=== PATIENT | female | born 1950 | race Caucasian/White ===

== ENCOUNTER → 2020-09-29 | Outpatient (CLI) | payer OTHER ==
[~2020-09-29] MED LIST: ATEN50 PO; HYDCHL25 PO; Pepcid40 MG PO
== END | disposition home or self-care (01) ==
LOC: LAB EV 14:45 → LAB SHORT 14:45
DX: S39.012A Strain of muscle, fascia and tendon of lower back, initial encounter (principal); N39.0 Urinary tract infection, site not specified
CPT/HCPCS: 87077; 87086; 87186

== ENCOUNTER 2021-01-18 08:42 | Emergency (ER) | payer OTHER ==
[~2021-01-18] VITALS: Ht 157.5 cm; Wt 74.8 kg
[2021-01-18] MEDS ORDERED: ASPI81CH PO (08:58)
[2021-01-18 09:36] LABS: Source, Urine Catheter
[2021-01-18 09:46] LABS: Appearance, Urine Clear (Clear); Bilirubin, Urine Neg (Neg); Blood, Urine Neg (Neg); Color, Urine Yellow (P-Yellow); Glucose Qualitative, Urine Neg (Neg); Ketones, Urine 1+ (Neg); Leukocyte Esterase, Urine 1+ (Neg); Nitrite, Urine Pos (Neg); Protein, Urine Neg (Neg); Urobilinogen, Urine NORM (Normal); pH, Urine 6.5 (5.0-8.0)
[2021-01-18 09:55] LABS: Bacteria Many /hpf; Red Blood Cells, Urine 0-2 /hpf (0-2); Squamous Epithelial Cells Rare /hpf (Few); Transitional Epithelial Cells Rare /hpf (0-Rare)
[2021-01-18] MEDS ORDERED: Percocet 5-3251 EACH PO ×2 (10:13→11:13)
[2021-01-18] MEDS ORDERED: Miralax17 GM PO ×2 (10:13→11:13)
[2021-01-18] MEDS ORDERED: CEFD300 PO (10:13)
[2021-01-18] MEDS ORDERED: ONDA4ODT SL ×2 (10:13→11:13)
== END 2021-01-19 15:30 | disposition home or self-care (01) ==
LOC: ER 08:42
PROVIDERS: Emergency Medicine
DX: M54.5 Low back pain (principal); G89.29 Other chronic pain; I10 Essential (primary) hypertension; Z88.8 Allergy status to other drugs, medicaments and biological substances; Z88.5 Allergy status to narcotic agent; Z79.899 Other long term (current) drug therapy
CPT/HCPCS: 51701; 81001; 87077; 87086; 87186; 96374; 96375; 99283-25; A9270; J1170; J2405

== ENCOUNTER 2021-01-19 09:00 | Emergency (ER) | payer OTHER ==
[~2021-01-19] VITALS: Ht 157.5 cm; Wt 74.8 kg
[~2021-01-19 09:00] MED LIST changes: +ASPI81CH PO; +CEFD300 PO; +Miralax17 GM PO; +ONDA4ODT SL; +Percocet 5-3251 EACH PO
[2021-01-19 09:48] LABS: Source, Urine Catheter
[2021-01-19 09:51] LABS: Bilirubin, Urine Neg (Neg); Blood, Urine Neg (Neg); Glucose Qualitative, Urine Neg (Neg); Ketones, Urine 2+ (Neg); Leukocyte Esterase, Urine 1+ (Neg); Nitrite, Urine Neg (Neg); Protein, Urine Neg (Neg); Urobilinogen, Urine NORM (Normal); pH, Urine 6.5 (5.0-8.0)
[2021-01-19 09:55] LABS: BASOPHILS ABSOLUTE AUTO 0.02 K/mm3 (0.00-0.23); BASOPHILS PERCENT AUTO 0 % (0-2); EOSINOPHILS ABSOLUTE AUTO 0.02 K/mm3 (0.00-0.68); EOSINOPHILS PERCENT AUTO 0 % (0-6); Hematocrit 31.3 % (33.0-51.0); Hemoglobin 10.4 g/dL (11.5-16.0); IMMATURE GRAN ABSOLUTE AUTO 0.03 K/mm3 (0.00-0.10); IMMATURE GRAN PERCENT AUTO 0 % (0-1); LYMPHOCYTES PERCENT AUTO 9 % (21-46); MONOCYTES PERCENT AUTO 5 % (4-13); Mean Corpuscular HGB 29.5 pg (26.0-34.0); Mean Corpuscular HGB Conc 33.2 g/dL (31.5-36.5); Mean Corpuscular Volume 89 fL (80-100); Mean Platelet Volume 9.9 fL (9.1-12.4); NEUTROPHILS ABSOLUTE AUTO 8.08 K/mm3 (1.96-9.15); NEUTROPHILS PERCENT AUTO 85 % (41-73); Platelet Count 367 K/mm3 (150-400); RDW Coefficient Variation 13.1 % (11.7-14.2); RDW Standard Deviation 42.3 fL (35.1-46.3); Red Blood Cell Count 3.53 M/mm3 (3.80-5.20); White Blood Cell Count 9.55 K/mm3 (4.00-11.30)
[2021-01-19 09:57] LABS: Appearance, Urine Clear (Clear); Color, Urine Yellow (P-Yellow)
[2021-01-19 09:59] LABS: Bacteria Rare /hpf; Red Blood Cells, Urine 0-2 /hpf (0-2); Squamous Epithelial Cells Few /hpf (Few); White Blood Cells, Urine 0-2 /hpf (0-5)
[2021-01-19 10:08] LABS: Albumin, Blood 3.4 g/dL (3.4-5.0); Albumin/Globulin Ratio 0.8 (0.8-1.8); Bilirubin, Total 0.4 mg/dL (0.1-1.0); Bun/Creatinine Ratio 19.3 (12.0-20.0); Calcium, Blood 9.9 mg/dL (8.5-10.1); Creatinine, Blood 1.35 mg/dL (0.40-1.00); Globulin, Blood 4.5 g/dL (2.2-4.0); Potassium, Blood 3.6 mmol/L (3.5-5.5); Total Protein, Blood 7.9 g/dL (6.4-8.2)
[2021-01-19 15:04] LABS: Influenza A, PCR NEGATIVE (NEGATIVE); Influenza B, PCR NEGATIVE (NEGATIVE); Resp Syncytial Virus, PCR NEGATIVE (NEGATIVE); SARS-Cov-2 (COVID-19) PCR, MMC NEGATIVE (NEGATIVE)
== END 2021-01-19 15:30 | disposition home or self-care (01) ==
LOC: ER 09:00
PROVIDERS: Physician Assistant
DX: C79.02 Secondary malignant neoplasm of left kidney and renal pelvis (principal); I10 Essential (primary) hypertension; Z88.5 Allergy status to narcotic agent; Z88.8 Allergy status to other drugs, medicaments and biological substances; Z79.82 Long term (current) use of aspirin; Z20.822 Contact with and (suspected) exposure to COVID-19
CPT/HCPCS: 0241U; 74178; 80053; 81001; 83690; 85025; 87086; 96361-59; 96374-59; 96376-59; 99285-25; J1170; J7030; P9612; Q9967

== ENCOUNTER → 2021-03-24 | Outpatient (CLI) | payer OTHER ==
[2021-03-24 11:43] LABS: BASOPHILS ABSOLUTE AUTO 0.05 K/mm3 (0.00-0.23); BASOPHILS PERCENT AUTO 1 % (0-2); EOSINOPHILS ABSOLUTE AUTO 0.09 K/mm3 (0.00-0.68); EOSINOPHILS PERCENT AUTO 1 % (0-6); Hematocrit 34.9 % (33.0-51.0); Hemoglobin 11.4 g/dL (11.5-16.0); IMMATURE GRAN ABSOLUTE AUTO 0.03 K/mm3 (0.00-0.10); IMMATURE GRAN PERCENT AUTO 0 % (0-1); LYMPHOCYTES ABSOLUTE AUTO 0.77 K/mm3 (0.84-5.20); LYMPHOCYTES PERCENT AUTO 10 % (21-46); MONOCYTES ABSOLUTE AUTO 0.62 K/mm3 (0.16-1.47); MONOCYTES PERCENT AUTO 8 % (4-13); Mean Corpuscular HGB 29.7 pg (26.0-34.0); Mean Corpuscular HGB Conc 32.7 g/dL (31.5-36.5); Mean Corpuscular Volume 91 fL (80-100); NEUTROPHILS ABSOLUTE AUTO 6.02 K/mm3 (1.96-9.15); NEUTROPHILS PERCENT AUTO 79 % (41-73); Platelet Count 481 K/mm3 (150-400); RDW Coefficient Variation 16.6 % (11.7-14.2); RDW Standard Deviation 53.4 fL (35.1-46.3); Red Blood Cell Count 3.84 M/mm3 (3.80-5.20); White Blood Cell Count 7.58 K/mm3 (4.00-11.30)
[2021-03-24 11:54] LABS: Albumin, Blood 3.1 g/dL (3.4-5.0); Albumin/Globulin Ratio 0.7 (0.8-1.8); Bilirubin, Total 0.4 mg/dL (0.1-1.0); Bun/Creatinine Ratio 18.4 (12.0-20.0); Calcium, Blood 9.4 mg/dL (8.5-10.1); Creatinine, Blood 0.98 mg/dL (0.40-1.00); Globulin, Blood 4.5 g/dL (2.2-4.0); Potassium, Blood 4.1 mmol/L (3.5-5.5); Total Protein, Blood 7.6 g/dL (6.4-8.2)
== END ==
LOC: LAB SHORT 11:36 → LAB 11:36
PROVIDERS: General Practice
DX: C64.9 Malignant neoplasm of unspecified kidney, except renal pelvis (principal); T81.30XA Disruption of wound, unspecified, initial encounter
CPT/HCPCS: 80053; 85025; 87070; 87075; 87205

== ENCOUNTER 2021-04-23 04:14 | Day surgery (SDC) | payer OTHER | END 2021-04-23 22:53 | disposition home or self-care (01) | LOC: WOUND 04:14 | DX: T81.30XA Disruption of wound, unspecified, initial encounter (principal); S21.209A Unspecified open wound of unspecified back wall of thorax without penetration into thoracic cavity, initial encounter; X58.XXXA Exposure to other specified factors, initial encounter | CPT/HCPCS: G0463 ==

== ENCOUNTER 2021-04-30 00:54 | Day surgery (SDC) | payer OTHER | END 2021-04-30 23:28 | disposition home or self-care (01) | LOC: WOUND 00:54 | DX: T81.31XA Disruption of external operation (surgical) wound, not elsewhere classified, initial encounter (principal); S21.209A Unspecified open wound of unspecified back wall of thorax without penetration into thoracic cavity, initial encounter; X58.XXXA Exposure to other specified factors, initial encounter | CPT/HCPCS: A9270; G0463 ==

== ENCOUNTER 2021-05-07 04:08 | Day surgery (SDC) | payer OTHER | END 2021-05-07 23:59 | disposition home or self-care (01) | LOC: WOUND 04:08 | DX: S21.209A Unspecified open wound of unspecified back wall of thorax without penetration into thoracic cavity, initial encounter (principal); X58.XXXA Exposure to other specified factors, initial encounter | CPT/HCPCS: G0463 ==

== ENCOUNTER 2021-05-14 06:30 | Day surgery (SDC) | payer OTHER | END 2021-05-14 22:51 | disposition home or self-care (01) | LOC: WOUND 06:30 | DX: S21.209D Unspecified open wound of unspecified back wall of thorax without penetration into thoracic cavity, subsequent encounter (principal); X58.XXXD Exposure to other specified factors, subsequent encounter | CPT/HCPCS: G0463 ==

== ENCOUNTER 2021-05-23 02:10 | Day surgery (SDC) | payer OTHER | END 2021-05-23 23:00 | disposition home or self-care (01) | LOC: WOUND 02:10 | DX: S21.209D Unspecified open wound of unspecified back wall of thorax without penetration into thoracic cavity, subsequent encounter (principal); X58.XXXD Exposure to other specified factors, subsequent encounter | CPT/HCPCS: A9270; G0463 ==

== ENCOUNTER 2021-05-28 02:35 | Day surgery (SDC) | payer OTHER | END 2021-05-28 23:31 | disposition home or self-care (01) | LOC: WOUND 02:35 | DX: S21.209D Unspecified open wound of unspecified back wall of thorax without penetration into thoracic cavity, subsequent encounter (principal); X58.XXXD Exposure to other specified factors, subsequent encounter; C64.9 Malignant neoplasm of unspecified kidney, except renal pelvis | CPT/HCPCS: G0463 ==

== ENCOUNTER 2021-06-04 02:03 | Day surgery (SDC) | payer OTHER | END 2021-06-04 23:00 | disposition home or self-care (01) | LOC: WOUND 02:03 | DX: T81.31XA Disruption of external operation (surgical) wound, not elsewhere classified, initial encounter (principal); S21.209D Unspecified open wound of unspecified back wall of thorax without penetration into thoracic cavity, subsequent encounter; X58.XXXD Exposure to other specified factors, subsequent encounter; C64.9 Malignant neoplasm of unspecified kidney, except renal pelvis | CPT/HCPCS: G0463 ==

== ENCOUNTER 2021-06-11 00:38 | Day surgery (SDC) | payer OTHER | END 2021-06-11 22:46 | disposition home or self-care (01) | LOC: WOUND 00:38 | DX: T81.31XD Disruption of external operation (surgical) wound, not elsewhere classified, subsequent encounter (principal); C64.9 Malignant neoplasm of unspecified kidney, except renal pelvis; C79.9 Secondary malignant neoplasm of unspecified site; Z92.3 Personal history of irradiation | CPT/HCPCS: G0463 ==

== ENCOUNTER 2021-06-18 01:56 | Day surgery (SDC) | payer OTHER | END 2021-06-18 23:05 | disposition home or self-care (01) | LOC: WOUND 01:56 | DX: T81.31XA Disruption of external operation (surgical) wound, not elsewhere classified, initial encounter (principal); C64.9 Malignant neoplasm of unspecified kidney, except renal pelvis; Y83.8 Other surgical procedures as the cause of abnormal reaction of the patient, or of later complication, without mention of misadventure at the time of the procedure; Z88.5 Allergy status to narcotic agent; Z88.8 Allergy status to other drugs, medicaments and biological substances | CPT/HCPCS: A9270 ==

== ENCOUNTER 2021-06-25 02:49 | Day surgery (SDC) | payer OTHER | END 2021-06-25 22:59 | disposition home or self-care (01) | LOC: WOUND 02:49 | DX: T81.31XD Disruption of external operation (surgical) wound, not elsewhere classified, subsequent encounter (principal); Z85.528 Personal history of other malignant neoplasm of kidney; Z92.3 Personal history of irradiation | CPT/HCPCS: A9270 ==

== ENCOUNTER 2021-07-02 02:17 | Day surgery (SDC) | payer OTHER | END 2021-07-02 22:44 | disposition home or self-care (01) | LOC: WOUND 02:17 | DX: T81.31XA Disruption of external operation (surgical) wound, not elsewhere classified, initial encounter (principal); C64.9 Malignant neoplasm of unspecified kidney, except renal pelvis; Y83.8 Other surgical procedures as the cause of abnormal reaction of the patient, or of later complication, without mention of misadventure at the time of the procedure; Z92.3 Personal history of irradiation | CPT/HCPCS: G0463 ==

== ENCOUNTER 2021-07-16 02:48 | Day surgery (SDC) | payer OTHER ==
[~2021-07-16 02:48] MED LIST changes: -ASPI81CH PO; +Aspir 8181 MG PO
== END 2021-07-16 22:43 | disposition home or self-care (01) ==
LOC: WOUND 02:48
DX: T81.31XA Disruption of external operation (surgical) wound, not elsewhere classified, initial encounter (principal); S21.209A Unspecified open wound of unspecified back wall of thorax without penetration into thoracic cavity, initial encounter; X58.XXXA Exposure to other specified factors, initial encounter
CPT/HCPCS: G0463

== ENCOUNTER 2021-07-18 12:07 | Inpatient (IN) | payer OTHER ==
[~2021-07-18] VITALS: Ht 157.5 cm; Wt 66.8 kg
[~2021-07-18 12:07] MED LIST changes: -GABA400 PO; -HYDPAM50 PO; -HYDR1TAB94 PO; -HYDRA50 PO; -INLYTA1 MG PO; -KEYTRUDA100 MG/41 IV; -MAGNESIUM OXID400 M1 PO; -MELO7.5 PO; -MIRALAX17 GM PO; -NEURONTIN PO; -OMEP20ER PO; -ONDA4ODT MM; -PANT40 PO; -SALONPAS PATCH1 EACH; -SUCRALFATE PO; -TIZA4 PO
[2021-07-18] MEDS ORDERED: GABA400 PO (12:37)
[2021-07-18] MEDS ORDERED: CEFD300 PO (12:37)
[2021-07-18] MEDS ORDERED: HYDRA50 PO (12:38)
[2021-07-18] MEDS ORDERED: HYDR1TAB94 PO (12:39)
[2021-07-18] MEDS ORDERED: INLYTA1 MG PO (12:40)
[2021-07-18] MEDS ORDERED: HYDPAM50 PO (12:40)
[2021-07-18] MEDS ORDERED: KEYTRUDA100 MG/41 IV (12:41)
[2021-07-18] MEDS ORDERED: MELO7.5 PO (12:41)
[2021-07-18] MEDS ORDERED: MAGNESIUM OXID400 M1 PO (12:41)
[2021-07-18] MEDS ORDERED: OMEP20ER PO (12:42)
[2021-07-18] MEDS ORDERED: MIRALAX17 GM PO (12:42)
[2021-07-18] MEDS ORDERED: PANT40 PO (12:42)
[2021-07-18] MEDS ORDERED: TIZA4 PO (12:43)
[2021-07-18] MEDS ORDERED: SALONPAS PATCH1 EACH (12:43)
[2021-07-18 12:47] LABS: BASOPHILS ABSOLUTE AUTO 0.06 K/mm3 (0.00-0.23); BASOPHILS PERCENT AUTO 1 % (0-2); EOSINOPHILS ABSOLUTE AUTO 0.12 K/mm3 (0.00-0.68); EOSINOPHILS PERCENT AUTO 2 % (0-6); Hematocrit 29.5 % (33.0-51.0); Hemoglobin 9.6 g/dL (11.5-16.0); IMMATURE GRAN ABSOLUTE AUTO 0.02 K/mm3 (0.00-0.10); IMMATURE GRAN PERCENT AUTO 0 % (0-1); LYMPHOCYTES ABSOLUTE AUTO 0.82 K/mm3 (0.84-5.20); LYMPHOCYTES PERCENT AUTO 13 % (21-46); MONOCYTES ABSOLUTE AUTO 0.72 K/mm3 (0.16-1.47); MONOCYTES PERCENT AUTO 11 % (4-13); Mean Corpuscular HGB 28.9 pg (26.0-34.0); Mean Corpuscular HGB Conc 32.5 g/dL (31.5-36.5); Mean Corpuscular Volume 89 fL (80-100); Mean Platelet Volume 9.7 fL (9.1-12.4); NEUTROPHILS ABSOLUTE AUTO 4.76 K/mm3 (1.96-9.15); NEUTROPHILS PERCENT AUTO 73 % (41-73); Platelet Count 420 K/mm3 (150-400); RDW Coefficient Variation 14.2 % (11.7-14.2); RDW Standard Deviation 45.9 fL (35.1-46.3); Red Blood Cell Count 3.32 M/mm3 (3.80-5.20)
[2021-07-18 12:53] LABS: Bun/Creatinine Ratio 25.7 (12.0-20.0); Calcium, Blood 9.6 mg/dL (8.5-10.1); Creatinine, Blood 1.09 mg/dL (0.40-1.00); Potassium, Blood 4.3 mmol/L (3.5-5.5)
[2021-07-18 13:10] LABS: International Normalized Ratio 1.03; Prothrombin Time Results 10.8 Sec (9.7-11.5)
[2021-07-18 16:44] LABS: BASOPHILS ABSOLUTE AUTO 0.04 K/mm3 (0.00-0.23); BASOPHILS PERCENT AUTO 1 % (0-2); EOSINOPHILS ABSOLUTE AUTO 0.13 K/mm3 (0.00-0.68); EOSINOPHILS PERCENT AUTO 2 % (0-6); Hematocrit 27.7 % (33.0-51.0); Hemoglobin 8.9 g/dL (11.5-16.0); IMMATURE GRAN ABSOLUTE AUTO 0.02 K/mm3 (0.00-0.10); IMMATURE GRAN PERCENT AUTO 0 % (0-1); LYMPHOCYTES ABSOLUTE AUTO 0.89 K/mm3 (0.84-5.20); LYMPHOCYTES PERCENT AUTO 15 % (21-46); MONOCYTES ABSOLUTE AUTO 0.75 K/mm3 (0.16-1.47); MONOCYTES PERCENT AUTO 13 % (4-13); Mean Corpuscular HGB 28.6 pg (26.0-34.0); Mean Corpuscular HGB Conc 32.1 g/dL (31.5-36.5); Mean Corpuscular Volume 89 fL (80-100); Mean Platelet Volume 9.5 fL (9.1-12.4); NEUTROPHILS ABSOLUTE AUTO 4.04 K/mm3 (1.96-9.15); NEUTROPHILS PERCENT AUTO 69 % (41-73); Platelet Count 379 K/mm3 (150-400); RDW Coefficient Variation 14.2 % (11.7-14.2); RDW Standard Deviation 45.7 fL (35.1-46.3); Red Blood Cell Count 3.11 M/mm3 (3.80-5.20); White Blood Cell Count 5.87 K/mm3 (4.00-11.30)
[2021-07-18 16:54] LABS: Source, Urine Clean Catch
[2021-07-18 17:40] LABS: Appearance, Urine Turbid (Clear); Bilirubin, Urine Neg (Neg); Blood, Urine 4+ (Neg); Color, Urine Red (P-Yellow); Glucose Qualitative, Urine Neg (Neg); Ketones, Urine Neg (Neg); Leukocyte Esterase, Urine Neg (Neg); Nitrite, Urine Neg (Neg); Protein, Urine 4+ (Neg); Specific Gravity, Urine 1.015 (1.003-1.022); Urobilinogen, Urine NORM (Normal); pH, Urine 6.5 (5.0-8.0)
[2021-07-18] MEDS ORDERED: NEURONTIN PO (17:57)
[2021-07-18] MEDS ORDERED: ATEN50 PO (17:57)
[2021-07-18] MEDS ORDERED: SUCRALFATE PO (18:08)
[2021-07-18] MEDS ORDERED: HYDCHL25 PO (18:10)
[2021-07-18 18:14] LABS: Bacteria Mod /hpf; Red Blood Cells, Urine TNTC /hpf (0-2); Squamous Epithelial Cells Few /hpf (Few)
[2021-07-19 04:55] LABS: BASOPHILS ABSOLUTE AUTO 0.05 K/mm3 (0.00-0.23); BASOPHILS PERCENT AUTO 1 % (0-2); EOSINOPHILS ABSOLUTE AUTO 0.09 K/mm3 (0.00-0.68); EOSINOPHILS PERCENT AUTO 1 % (0-6); Hemoglobin 11.2 g/dL (11.5-16.0); IMMATURE GRAN ABSOLUTE AUTO 0.03 K/mm3 (0.00-0.10); IMMATURE GRAN PERCENT AUTO 0 % (0-1); LYMPHOCYTES ABSOLUTE AUTO 0.83 K/mm3 (0.84-5.20); LYMPHOCYTES PERCENT AUTO 11 % (21-46); MONOCYTES ABSOLUTE AUTO 0.82 K/mm3 (0.16-1.47); MONOCYTES PERCENT AUTO 11 % (4-13); Mean Corpuscular HGB 28.8 pg (26.0-34.0); Mean Corpuscular HGB Conc 32.9 g/dL (31.5-36.5); Mean Corpuscular Volume 87 fL (80-100); Mean Platelet Volume 9.4 fL (9.1-12.4); NEUTROPHILS ABSOLUTE AUTO 5.71 K/mm3 (1.96-9.15); NEUTROPHILS PERCENT AUTO 76 % (41-73); Platelet Count 393 K/mm3 (150-400); RDW Coefficient Variation 14.9 % (11.7-14.2); Red Blood Cell Count 3.89 M/mm3 (3.80-5.20); White Blood Cell Count 7.53 K/mm3 (4.00-11.30)
[2021-07-19 05:31] LABS: Albumin, Blood 2.9 g/dL (3.4-5.0); Albumin/Globulin Ratio 0.7 (0.8-1.8); Bilirubin, Total 0.4 mg/dL (0.1-1.0); Bun/Creatinine Ratio 21.7 (12.0-20.0); Calcium, Blood 9.4 mg/dL (8.5-10.1); Creatinine, Blood 1.2 mg/dL (0.40-1.00); Potassium, Blood 3.9 mmol/L (3.5-5.5); Total Protein, Blood 6.9 g/dL (6.4-8.2)
--- NOTE | 2021-07-19 06:09 | NUR ---
Newly admitted to unit with CBI and bearden catheter. urine shows hematuria but is clearing up to a lime boiler red color. a couple of clots noted overnight. CBI is running at a slower speed due to patient not tolerating a faster rate and catheter leakage when CBI is clamp is opened. otherwise, patient is alert and oriented x4. bedrest. vitals stable. on RA.
--- NOTE | 2021-07-19 08:59 | NUR ---
NAUSEA Patient c/o nausea and having emesis. Dr. Avalos notified, awaiting orders.
--- NOTE | 2021-07-19 15:51 | NUR ---
CLARIFICATION RE H&H Called Dr. Marinelli RE clarification for H&H q6H and the comment made with the serial H&H order. Per Dr. Marinelli, d/c serial H&H, order CBC for AM labs on 07/20, and order H&H for now 07/19 @ 1600. Orders updated.
[2021-07-19 16:49] LABS: Hematocrit 32.3 % (33.0-51.0); Hemoglobin 10.4 g/dL (11.5-16.0)
--- NOTE | 2021-07-19 19:19 | NUR ---
Shift Summary, The patient was a/ox4 TO PERSON, PLACE, TIME AND EVENT, She was pleasent and cooperative with care. she was a 1 prsn assist to the bsc. She denied SOB OR CHEST PAIN AND WAS RA. She had a bearden with CBI throughout the shift. The drainage was light red and the patient denied abd or bladder pain. The patient did have flank pain and was being medicated per EMAR and she stated that it helped. She had some nausea this am but was given zofran per emar and the nausea subsided. The patient was ambulated in the hallway and up in her chair for dinner. The patient is currently in her room talking on the phone.
[2021-07-20 05:28] LABS: BASOPHILS ABSOLUTE AUTO 0.06 K/mm3 (0.00-0.23); BASOPHILS PERCENT AUTO 1 % (0-2); EOSINOPHILS ABSOLUTE AUTO 0.31 K/mm3 (0.00-0.68); EOSINOPHILS PERCENT AUTO 5 % (0-6); Hemoglobin 10.5 g/dL (11.5-16.0); IMMATURE GRAN ABSOLUTE AUTO 0.01 K/mm3 (0.00-0.10); IMMATURE GRAN PERCENT AUTO 0 % (0-1); LYMPHOCYTES ABSOLUTE AUTO 0.92 K/mm3 (0.84-5.20); LYMPHOCYTES PERCENT AUTO 15 % (21-46); MONOCYTES ABSOLUTE AUTO 0.84 K/mm3 (0.16-1.47); MONOCYTES PERCENT AUTO 14 % (4-13); Mean Corpuscular HGB 28.2 pg (26.0-34.0); Mean Corpuscular HGB Conc 31.8 g/dL (31.5-36.5); Mean Corpuscular Volume 89 fL (80-100); Mean Platelet Volume 9.4 fL (9.1-12.4); NEUTROPHILS ABSOLUTE AUTO 3.82 K/mm3 (1.96-9.15); NEUTROPHILS PERCENT AUTO 64 % (41-73); Platelet Count 388 K/mm3 (150-400); RDW Coefficient Variation 14.6 % (11.7-14.2); RDW Standard Deviation 47.3 fL (35.1-46.3); Red Blood Cell Count 3.73 M/mm3 (3.80-5.20); White Blood Cell Count 5.96 K/mm3 (4.00-11.30)
--- NOTE | 2021-07-20 14:31 | NUR ---
DR CHATMAN CANCELED PER DR. LEROY'S REQUEST.
[2021-07-20 16:54] LABS: Hematocrit 31.7 % (33.0-51.0); Hemoglobin 10.4 g/dL (11.5-16.0)
--- NOTE | 2021-07-20 17:39 | NUR ---
SHIFT SUMMARY PATIENT ALERT AND ORIENTED, COOPERATIVE WITH CARE. BLADDER IRRIGATION WAS COMPLETED THIS SHIFT. THE IRVIN WAS DC'D PER DR'S ORDERS. NO NOTICABLE CLOTS AT THIS TIME, HGB MONITORED. PATIENT HAS BEEN RECEIVING NORCO FOR PAIN NEEDED PER THE EMAR. VITAL SIGNS STABLE. WILL CONTINUE TO MONITOR THE PATIENT UNTIL REPORT IS GIVEN TO ONCOMING SHIFT NURSE.
--- NOTE | 2021-07-21 04:27 | NUR ---
PATIENT VOIDED POST IRVIN CATHETER D/C. FIRST VOID AT 2100 WAS DARK RED, BLOODY WITH 2 SMALL CLOTS. THE SECOND VOID AT 0320 WAS DANYELLE COLORED URINE WITH JUST A SMALL AMOUNT OF BLOOD PRESENT. NO CLOTS WERE VISUALIZED. A NEW IV WAS PLACED. THE OTHER ONE INFILTRATED. NO OTHER ACUTE CHANGES NOTED.
[2021-07-21 05:11] LABS: Hematocrit 31.9 % (33.0-51.0); Hemoglobin 10.2 g/dL (11.5-16.0)
[2021-07-21 05:52] LABS: Albumin, Blood 2.8 g/dL (3.4-5.0); Albumin/Globulin Ratio 0.7 (0.8-1.8); Bilirubin, Direct 0.1 mg/dL (0.0-0.3); Bilirubin, Indirect 0.2 mg/dL (0.1-0.7); Bilirubin, Total 0.3 mg/dL (0.1-1.0); Bun/Creatinine Ratio 18.8 (12.0-20.0); Calcium, Blood 9.3 mg/dL (8.5-10.1); Creatinine, Blood 1.12 mg/dL (0.40-1.00); Magnesium, Blood 2.4 mg/dL (1.6-2.4); Phosphorus, Blood 3.1 mg/dL (2.5-4.9); Potassium, Blood 3.6 mmol/L (3.5-5.5); Total Protein, Blood 6.8 g/dL (6.4-8.2)
[2021-07-21] MEDS ORDERED: ONDA4ODT MM (13:30)
--- NOTE | 2021-07-21 16:59 | NUR ---
PATIENT WAS DISCHARGED VIA WHEEL CHAIR TO FAMILY. PATIENT VERBALLY STATED THEY UNDERSTOOD DISCHARGE INSTRUCTIONS AND FOLLOW UP CARE. PATIENT'S BELONGINGS AND MEDICATIONS WERE WITH THE PATIENT AT DISCHARGE.
== END 2021-07-21 15:43 | disposition home or self-care (01) | DRG 687 ==
LOC: ER 12:07 → ICUW 18:05 → MEDS 18:05
PROVIDERS: Family Medicine; Internal Medicine Nephrology; Student in an Organized Health Care Education/Training Program; ADMIT Hospitalist
PROC: 30233N1 Transfusion of Nonautologous Red Blood Cells into Peripheral Vein, Percutaneous Approach (ICD-10-PCS; principal; 2021-07-18)
DX: C64.2 Malignant neoplasm of left kidney, except renal pelvis (principal); I82.3 Embolism and thrombosis of renal vein; C79.51 Secondary malignant neoplasm of bone; D62 Acute posthemorrhagic anemia; N17.9 Acute kidney failure, unspecified; I82.890 Acute embolism and thrombosis of other specified veins; G89.29 Other chronic pain; K59.00 Constipation, unspecified; K21.9 Gastro-esophageal reflux disease without esophagitis; M10.9 Gout, unspecified; I10 Essential (primary) hypertension; G62.9 Polyneuropathy, unspecified; R31.0 Gross hematuria; Z88.5 Allergy status to narcotic agent; Z88.8 Allergy status to other drugs, medicaments and biological substances; Z90.710 Acquired absence of both cervix and uterus; Z87.891 Personal history of nicotine dependence; Z79.899 Other long term (current) drug therapy; Z79.82 Long term (current) use of aspirin; N18.9 Chronic kidney disease, unspecified; E88.09 Other disorders of plasma-protein metabolism, not elsewhere classified
CPT/HCPCS: 36415; 36430; 51700; 51702; 51798; 74177; 76770; 80048; 80053; 81001; 82248; 83615; 83735; 84100; 85014; 85018; 85025; 85610; 85730; 86850; 86900; 86901; 86923; 87077; 87086; 87186; 93005; 93010; 93306; 93975; 96374-59; 97162; 97165; 97530; 99285-25; A9270; J1170; J2405; J7030; P9016; Q9967

== ENCOUNTER → 2021-07-18 | Outpatient (CLI) | payer OTHER ==
[~2021-07-18] MED LIST changes: +GABA400 PO; +HYDPAM50 PO; +HYDR1TAB94 PO; +HYDRA50 PO; +INLYTA1 MG PO; +KEYTRUDA100 MG/41 IV; +MAGNESIUM OXID400 M1 PO; +MELO7.5 PO; +MIRALAX17 GM PO; +NEURONTIN PO; +OMEP20ER PO; +ONDA4ODT MM; +PANT40 PO; +SALONPAS PATCH1 EACH; +SUCRALFATE PO; +TIZA4 PO
[2021-07-18 11:55] LABS: BASOPHILS ABSOLUTE AUTO 0.08 K/mm3 (0.00-0.23); BASOPHILS PERCENT AUTO 1 % (0-2); EOSINOPHILS ABSOLUTE AUTO 0.15 K/mm3 (0.00-0.68); EOSINOPHILS PERCENT AUTO 2 % (0-6); Hematocrit 31.7 % (33.0-51.0); Hemoglobin 10.3 g/dL (11.5-16.0); IMMATURE GRAN ABSOLUTE AUTO 0.05 K/mm3 (0.00-0.10); IMMATURE GRAN PERCENT AUTO 1 % (0-1); LYMPHOCYTES ABSOLUTE AUTO 0.77 K/mm3 (0.84-5.20); LYMPHOCYTES PERCENT AUTO 12 % (21-46); MONOCYTES ABSOLUTE AUTO 0.58 K/mm3 (0.16-1.47); MONOCYTES PERCENT AUTO 9 % (4-13); Mean Corpuscular HGB Conc 32.5 g/dL (31.5-36.5); Mean Corpuscular Volume 89 fL (80-100); Mean Platelet Volume 9.3 fL (9.1-12.4); NEUTROPHILS ABSOLUTE AUTO 4.72 K/mm3 (1.96-9.15); NEUTROPHILS PERCENT AUTO 74 % (41-73); Platelet Count 417 K/mm3 (150-400); RDW Coefficient Variation 14.3 % (11.7-14.2); RDW Standard Deviation 46.5 fL (35.1-46.3); Red Blood Cell Count 3.55 M/mm3 (3.80-5.20); White Blood Cell Count 6.35 K/mm3 (4.00-11.30)
[2021-07-18 12:05] LABS: Albumin, Blood 3.6 g/dL (3.4-5.0); Albumin/Globulin Ratio 0.8 (0.8-1.8); Bilirubin, Total 0.3 mg/dL (0.1-1.0); Bun/Creatinine Ratio 23.8 (12.0-20.0); Calcium, Blood 9.8 mg/dL (8.5-10.1); Creatinine, Blood 1.3 mg/dL (0.40-1.00); Globulin, Blood 4.3 g/dL (2.2-4.0); Total Protein, Blood 7.9 g/dL (6.4-8.2)
== END ==
LOC: LAB SHORT 09:23
PROVIDERS: Physician Assistant
DX: R31.9 Hematuria, unspecified (principal); N39.0 Urinary tract infection, site not specified
CPT/HCPCS: 80053; 85025; 87086

== ENCOUNTER 2021-07-24 07:56 | Emergency (ER) | payer OTHER ==
[~2021-07-24] VITALS: Ht 157.5 cm; Wt 63.0 kg
[~2021-07-24 07:56] MED LIST changes: +GABA400 PO; +HYDPAM50 PO; +HYDR1TAB94 PO; +HYDRA50 PO; +INLYTA1 MG PO; +KEYTRUDA100 MG/41 IV; +MAGNESIUM OXID400 M1 PO; +MELO7.5 PO; +MIRALAX17 GM PO; +NEURONTIN PO; +OMEP20ER PO; +ONDA4ODT MM; +PANT40 PO; +SALONPAS PATCH1 EACH; +SUCRALFATE PO; +TIZA4 PO
[2021-07-24 08:24] LABS: Source, Urine Catheter
[2021-07-24 09:10] LABS: Bilirubin, Urine Neg (Neg); Blood, Urine 5+ (Neg); Color, Urine Red (P-Yellow); Glucose Qualitative, Urine Neg (Neg); Ketones, Urine Neg (Neg); Leukocyte Esterase, Urine 1+ (Neg); Nitrite, Urine Neg (Neg); Protein, Urine 4+ (Neg); Specific Gravity, Urine 1.015 (1.003-1.022); Urobilinogen, Urine NORM (Normal)
[2021-07-24 09:12] LABS: BASOPHILS ABSOLUTE AUTO 0.04 K/mm3 (0.00-0.23); BASOPHILS PERCENT AUTO 1 % (0-2); EOSINOPHILS ABSOLUTE AUTO 0.23 K/mm3 (0.00-0.68); EOSINOPHILS PERCENT AUTO 4 % (0-6); Hematocrit 33.2 % (33.0-51.0); Hemoglobin 10.8 g/dL (11.5-16.0); IMMATURE GRAN ABSOLUTE AUTO 0.01 K/mm3 (0.00-0.10); IMMATURE GRAN PERCENT AUTO 0 % (0-1); LYMPHOCYTES ABSOLUTE AUTO 0.65 K/mm3 (0.84-5.20); LYMPHOCYTES PERCENT AUTO 10 % (21-46); MONOCYTES ABSOLUTE AUTO 0.65 K/mm3 (0.16-1.47); MONOCYTES PERCENT AUTO 10 % (4-13); Mean Corpuscular HGB 28.6 pg (26.0-34.0); Mean Corpuscular HGB Conc 32.5 g/dL (31.5-36.5); Mean Corpuscular Volume 88 fL (80-100); Mean Platelet Volume 9.6 fL (9.1-12.4); NEUTROPHILS ABSOLUTE AUTO 4.77 K/mm3 (1.96-9.15); NEUTROPHILS PERCENT AUTO 75 % (41-73); Platelet Count 397 K/mm3 (150-400); RDW Coefficient Variation 14.1 % (11.7-14.2); RDW Standard Deviation 45.1 fL (35.1-46.3); Red Blood Cell Count 3.78 M/mm3 (3.80-5.20); White Blood Cell Count 6.35 K/mm3 (4.00-11.30)
[2021-07-24 09:14] LABS: Bacteria Mod /hpf; Red Blood Cells, Urine TNTC /hpf (0-2); Squamous Epithelial Cells Not Seen /hpf (Few)
[2021-07-24 09:16] LABS: Appearance, Urine Bloody (Clear)
[2021-07-24 09:28] LABS: Albumin, Blood 3.1 g/dL (3.4-5.0); Albumin/Globulin Ratio 0.7 (0.8-1.8); Bilirubin, Total 0.3 mg/dL (0.1-1.0); Bun/Creatinine Ratio 21.3 (12.0-20.0); Calcium, Blood 9.5 mg/dL (8.5-10.1); Creatinine, Blood 0.98 mg/dL (0.40-1.00); Globulin, Blood 4.3 g/dL (2.2-4.0); Potassium, Blood 4.2 mmol/L (3.5-5.5); Total Protein, Blood 7.4 g/dL (6.4-8.2)
== END 2021-07-24 15:00 | disposition home or self-care (01) ==
LOC: ER 07:56
PROVIDERS: Physician Assistant
DX: N13.9 Obstructive and reflux uropathy, unspecified (principal); C64.9 Malignant neoplasm of unspecified kidney, except renal pelvis; I12.9 Hypertensive chronic kidney disease with stage 1 through stage 4 chronic kidney disease, or unspecified chronic kidney disease; N18.9 Chronic kidney disease, unspecified; K21.9 Gastro-esophageal reflux disease without esophagitis; M10.9 Gout, unspecified; Z88.5 Allergy status to narcotic agent; Z88.8 Allergy status to other drugs, medicaments and biological substances; Z79.899 Other long term (current) drug therapy
CPT/HCPCS: 36415; 51702; 51798; 74177; 80053; 81001; 85025; 87077; 87086; 87186; 99284-25; Q9967

== ENCOUNTER 2021-07-25 12:05 | Emergency (ER) | payer OTHER ==
[~2021-07-25] VITALS: Ht 157.5 cm; Wt 63.0 kg
[2021-07-25 13:10] LABS: Calcium, Ionized (POC) 1.21 mmol/L (1.10-1.46); Chloride (POC) 98 mmol/L (98-108); Creatinine (POC) 1.1 mg/dL (0.6-1.0); Glucose (ISTAT POC) 76 mg/dL (70-99); Hemoglobin (POC) 10.9 g/dL (12.0-16.0); Potassium (POC) 4.6 mmol/L (3.5-5.5); Sodium (POC) 136 mmol/L (135-148); Total CO2 (POC) 28 mmol/L (21-32)
== END 2021-07-25 13:31 | disposition home or self-care (01) ==
LOC: ER 12:05
PROVIDERS: Emergency Medicine
DX: T83.098A Other mechanical complication of other urinary catheter, initial encounter (principal); I12.9 Hypertensive chronic kidney disease with stage 1 through stage 4 chronic kidney disease, or unspecified chronic kidney disease; N18.9 Chronic kidney disease, unspecified; K21.9 Gastro-esophageal reflux disease without esophagitis; M10.9 Gout, unspecified; Z87.891 Personal history of nicotine dependence
CPT/HCPCS: 36415; 80047; 85014; 99283

== ENCOUNTER 2021-08-08 01:24 | Day surgery (SDC) | payer OTHER | END 2021-08-08 23:21 | disposition home or self-care (01) | LOC: WOUND 01:24 | DX: S21.209D Unspecified open wound of unspecified back wall of thorax without penetration into thoracic cavity, subsequent encounter (principal); X58.XXXD Exposure to other specified factors, subsequent encounter; C64.9 Malignant neoplasm of unspecified kidney, except renal pelvis; Z88.5 Allergy status to narcotic agent | CPT/HCPCS: A9270; G0463 ==

== ENCOUNTER 2022-02-27 13:57 | Day surgery (SDC) | payer OTHER ==
[~2022-02-27] VITALS: Ht 157.5 cm; Wt 59.1 kg
[~2022-02-27 13:57] MED LIST changes: +ALLO100 PO; +ASPIR 8181 M1 PO; +B-12500 MC2 PO; +C COMPLEX1000 M1 PO; +Vitamin D1000 UNI1 PO
--- NOTE | 2022-02-27 14:41 | NUR ---
History, Chart, Medications and Allergies reviewed before start of procedure. Patient confirms NPO status and agrees with scheduled surgery. Patient States Post-Procedure ride home has been arranged with son Jeffry.
--- NOTE | 2022-02-27 15:19 | NUR ---
02/27/22 1519 Gordon Cuellar History, Chart, Medications and Allergies reviewed before start of procedure. Patient confirms NPO status and agrees with scheduled surgery. 3-LEAD EKG REVIEWED WITH PHYSICIAN PRIOR TO START OF PROCEDURE. MONITOR INTACT WITH CONTINUOUS PULSE OXIMETRY AND INTERMITTENT BP. PATIENT DETERMINED TO BE ASA APPROPRIATE FOR PROPOFOL SEDATION PRIOR TO START OF PROCEDURE BY DR. DAWSON
--- NOTE | 2022-02-27 15:35 | NUR ---
REPORT FROM ODALYS GARCIA RN.
--- NOTE | 2022-02-27 16:15 | NUR ---
Patient up to Ambulate independently. Gait steady. Discharge instructions reviewed with patient. Patient verbalizes understanding. Copy given to patient to take home, [facility] FAMILY MARYELLEN. Patient States Post-Procedure ride home has been arranged. Discharged via wheelchair to private car for ride home.
== END 2022-02-27 16:15 | disposition home or self-care (01) ==
LOC: ORSCMMR 13:57 → ORD 15:30 → ORSCMMR 15:30
PROVIDERS: Surgery
PROC: 0DJ08ZZ Inspection of Upper Intestinal Tract, Via Natural or Artificial Opening Endoscopic (ICD-10-PCS; principal; 2022-02-27 15:30)
DX: R10.13 Epigastric pain (principal); R11.2 Nausea with vomiting, unspecified; K44.9 Diaphragmatic hernia without obstruction or gangrene; Z79.82 Long term (current) use of aspirin; Z79.899 Other long term (current) drug therapy
CPT/HCPCS: J2704; J7120

== ENCOUNTER → 2022-03-18 | Outpatient (CLI) | payer OTHER ==
[2022-03-18 14:04] LABS: BASOPHILS ABSOLUTE AUTO 0.04 K/mm3 (0.00-0.23); BASOPHILS PERCENT AUTO 1 % (0-2); EOSINOPHILS PERCENT AUTO 2 % (0-6); Hematocrit 46.1 % (33.0-51.0); Hemoglobin 15.1 g/dL (11.5-16.0); IMMATURE GRAN ABSOLUTE AUTO 0.02 K/mm3 (0.00-0.10); IMMATURE GRAN PERCENT AUTO 0 % (0-1); LYMPHOCYTES ABSOLUTE AUTO 1.23 K/mm3 (0.84-5.20); LYMPHOCYTES PERCENT AUTO 19 % (21-46); MONOCYTES ABSOLUTE AUTO 0.57 K/mm3 (0.16-1.47); MONOCYTES PERCENT AUTO 9 % (4-13); Mean Corpuscular HGB 30.1 pg (26.0-34.0); Mean Corpuscular HGB Conc 32.8 g/dL (31.5-36.5); Mean Corpuscular Volume 92 fL (80-100); Mean Platelet Volume 10.2 fL (9.1-12.4); NEUTROPHILS ABSOLUTE AUTO 4.37 K/mm3 (1.96-9.15); NEUTROPHILS PERCENT AUTO 69 % (41-73); Platelet Count 438 K/mm3 (150-400); RDW Coefficient Variation 12.8 % (11.7-14.2); RDW Standard Deviation 42.8 fL (35.1-46.3); Red Blood Cell Count 5.02 M/mm3 (3.80-5.20); White Blood Cell Count 6.33 K/mm3 (4.00-11.30)
[2022-03-18 14:20] LABS: Albumin, Blood 3.5 g/dL (3.4-5.0); Bilirubin, Total 0.5 mg/dL (0.1-1.0); Calcium, Blood 9.7 mg/dL (8.5-10.1); Globulin, Blood 3.5 g/dL (2.2-4.0); Potassium, Blood 4.3 mmol/L (3.5-5.5)
== END ==
LOC: LAB SHORT 13:46
PROVIDERS: Internal Medicine Hematology & Oncology
DX: C64.9 Malignant neoplasm of unspecified kidney, except renal pelvis (principal)
CPT/HCPCS: 80053; 85025

== ENCOUNTER 2022-05-05 14:15 | Emergency (ER) | payer OTHER ==
[~2022-05-05] VITALS: Ht 154.9 cm; Wt 50.8 kg
== END 2022-05-05 19:50 | disposition home or self-care (01) ==
LOC: ER 14:15
DX: E86.0 Dehydration (principal); I12.9 Hypertensive chronic kidney disease with stage 1 through stage 4 chronic kidney disease, or unspecified chronic kidney disease; N18.9 Chronic kidney disease, unspecified; Z87.891 Personal history of nicotine dependence; K21.9 Gastro-esophageal reflux disease without esophagitis; Z79.899 Other long term (current) drug therapy; Z79.82 Long term (current) use of aspirin; Z88.5 Allergy status to narcotic agent; Z88.8 Allergy status to other drugs, medicaments and biological substances
CPT/HCPCS: J7030

== ENCOUNTER → 2022-05-17 | Emergency (ER) | payer OTHER ==
[~2022-05-17] VITALS: Ht 165.1 cm; Wt 65.8 kg
[~2022-05-17] MED LIST changes: +DIAPER RASH113 G1 TOP; +PRAHYD1AEA PR
[2022-05-17 18:57] LABS: Hematocrit 43.9 % (33.0-51.0); Hemoglobin 14.9 g/dL (11.5-16.0); Mean Corpuscular HGB 29.7 pg (26.0-34.0); Mean Corpuscular HGB Conc 33.9 g/dL (31.5-36.5); Mean Corpuscular Volume 88 fL (80-100); Mean Platelet Volume 9.8 fL (9.1-12.4); Platelet Count 631 K/mm3 (150-400); RDW Coefficient Variation 13.2 % (11.7-14.2); RDW Standard Deviation 42.7 fL (35.1-46.3); Red Blood Cell Count 5.01 M/mm3 (3.80-5.20); White Blood Cell Count 8.82 K/mm3 (4.00-11.30)
[2022-05-17 19:05] LABS: Albumin, Blood 3.2 g/dL (3.4-5.0); Albumin/Globulin Ratio 0.8 (0.8-1.8); Bilirubin, Total 0.3 mg/dL (0.1-1.0); Bun/Creatinine Ratio 28.8 (12.0-20.0); Calcium, Blood 10.7 mg/dL (8.5-10.1); Creatinine, Blood 1.18 mg/dL (0.40-1.00); Globulin, Blood 4.2 g/dL (2.2-4.0); Potassium, Blood 4.1 mmol/L (3.5-5.5); Total Protein, Blood 7.4 g/dL (6.4-8.2)
[2022-05-17 20:08] LABS: BAND PERCENT MAN 45 % (0-8); BASOPHILS PERCENT MAN 0 % (0-2); EOSINOPHILS PERCENT MAN 0 % (0-6); LYMPHOCYTES ABSOLUTE MAN 0.79 K/mm3 (0.84-5.20); LYMPHOCYTES PERCENT MAN 9 % (21-46); MONOCYTES ABSOLUTE MAN 0.52 K/mm3 (0.16-1.47); MONOCYTES PERCENT MAN 6 % (4-13); NEUTROPHILS ABSOLUTE MAN 7.49 K/mm3 (1.96-9.15); SEG NEUTROPHILS PERCENT MAN 40 % (41-73); TOTAL CELLS COUNTED 100
[2022-05-18 08:19] LABS: Adenovirus F 40/41 Not Detected (NOT DETECT); Astrovirus Not Detected (NOT DETECT); Campylobacter Sp Not Detected (NOT DETECT); Cryptosporidium Not Detected (NOT DETECT); Cyclospora Cayetanensis Not Detected (NOT DETECT); E. Coli O157 Not Detected (NOT DETECT); Entamoeba Histolytica Not Detected (NOT DETECT); Enteroaggregative E. coli-EAEC Not Detected (NOT DETECT); Enteropathogenic E. coli-EPEC Detected (NOT DETECT); Enterotoxigenic E. coli-ETEC Not Detected (NOT DETECT); Giardia Lamblia Not Detected (NOT DETECT); Norovirus GI/GII Not Detected (NOT DETECT); Plesiomonas Shigelloides Not Detected (NOT DETECT); Rotavirus A Not Detected (NOT DETECT); Salmonella Sp Not Detected (NOT DETECT); Sapovirus Not Detected (NOT DETECT); Shiga Toxin-prod E. coli-STEC Not Detected (NOT DETECT); Shigella/Enteroin E. coli-EIEC Not Detected (NOT DETECT); Vibrio Cholerae Not Detected (NOT DETECT); Vibrio Sp Not Detected (NOT DETECT); Yersinia Enterocolitica Not Detected (NOT DETECT)
== END ==
LOC: ER 17:17
PROVIDERS: Emergency Medicine
DX: E86.0 Dehydration (principal); I12.9 Hypertensive chronic kidney disease with stage 1 through stage 4 chronic kidney disease, or unspecified chronic kidney disease; N18.9 Chronic kidney disease, unspecified; R53.1 Weakness; K64.4 Residual hemorrhoidal skin tags; R19.7 Diarrhea, unspecified; Z87.891 Personal history of nicotine dependence
CPT/HCPCS: 36415; 80053; 85025; 87507; J7030

== ENCOUNTER 2022-12-23 23:48 | Inpatient (IN) | payer OTHER ==
[~2022-12-23] VITALS: Ht 157.5 cm; Wt 56.1 kg
[2022-12-24 05:49] LABS: BASOPHILS ABSOLUTE AUTO 0.04 K/mm3 (0.00-0.23); BASOPHILS PERCENT AUTO 0 % (0-2); EOSINOPHILS PERCENT AUTO 0 % (0-6); Hematocrit 31.3 % (33.0-51.0); Hemoglobin 9.8 g/dL (11.5-16.0); IMMATURE GRAN ABSOLUTE AUTO 0.14 K/mm3 (0.00-0.10); IMMATURE GRAN PERCENT AUTO 1 % (0-1); LYMPHOCYTES ABSOLUTE AUTO 0.63 K/mm3 (0.84-5.20); LYMPHOCYTES PERCENT AUTO 4 % (21-46); MONOCYTES ABSOLUTE AUTO 0.73 K/mm3 (0.16-1.47); MONOCYTES PERCENT AUTO 5 % (4-13); Mean Corpuscular HGB 31.6 pg (26.0-34.0); Mean Corpuscular HGB Conc 31.3 g/dL (31.5-36.5); Mean Corpuscular Volume 101 fL (80-100); Mean Platelet Volume 9.2 fL (9.1-12.4); NEUTROPHILS ABSOLUTE AUTO 13.77 K/mm3 (1.96-9.15); NEUTROPHILS PERCENT AUTO 90 % (41-73); Platelet Count 372 K/mm3 (150-400); RDW Coefficient Variation 14.7 % (11.7-14.2); RDW Standard Deviation 55.4 fL (35.1-46.3); White Blood Cell Count 15.31 K/mm3 (4.00-11.30)
[2022-12-24 06:19] LABS: Albumin, Blood 3.2 g/dL (3.4-5.0); Albumin/Globulin Ratio 0.7 (0.8-1.8); Bilirubin, Total 0.2 mg/dL (0.1-1.0); Bun/Creatinine Ratio 19.3 (12.0-20.0); Calcium, Blood 9.8 mg/dL (8.5-10.1); Creatinine, Blood 4.82 mg/dL (0.40-1.00); Globulin, Blood 4.3 g/dL (2.2-4.0); Total Protein, Blood 7.5 g/dL (6.4-8.2)
[2022-12-24 06:23] LABS: Potassium, Blood 6.6 mmol/L (3.5-5.5)
[2022-12-24] MEDS ORDERED: Potassium Chlo20 ME1 PO (06:24)
[2022-12-24] MEDS ORDERED: OMEP20ER PO (06:24)
[2022-12-24] MEDS ORDERED: Prinivil10 MG PO (06:25)
[2022-12-24] MEDS ORDERED: Prednisone10 MG PO (06:26)
[2022-12-24] MEDS ORDERED: HYDCHL25 PO (06:26)
[2022-12-24] MEDS ORDERED: BENZONATATE100 MG PO (06:26)
[2022-12-24 08:31] LABS: PCO2 Arterial 21.2 mmHg (35-45); PO2 Arterial 112 mmHg (80-100); pH Blood Arterial 7.02 (7.35-7.45)
[2022-12-24 09:24] LABS: Source, Urine Straight Cath
[2022-12-24 09:26] LABS: Appearance, Urine Clear (Clear); Bilirubin, Urine Neg (Neg); Blood, Urine 1+ (Neg); Color, Urine Yellow (P-Yellow); Glucose Qualitative, Urine Neg (Neg); Ketones, Urine Neg (Neg); Leukocyte Esterase, Urine 1+ (Neg); Nitrite, Urine Neg (Neg); Protein, Urine 3+ (Neg); Specific Gravity, Urine 1.015 (1.003-1.022); Urobilinogen, Urine NORM (Normal)
[2022-12-24 09:32] LABS: Bacteria Many /hpf; Red Blood Cells, Urine 0-2 /hpf (0-2); Squamous Epithelial Cells Rare /hpf (Few)
[2022-12-24 14:25] LABS: Bun/Creatinine Ratio 20.3 (12.0-20.0); Calcium, Blood 9.7 mg/dL (8.5-10.1); Creatinine, Blood 4.59 mg/dL (0.40-1.00); Potassium, Blood 5.4 mmol/L (3.5-5.5)
--- NOTE | 2022-12-24 17:29 | NUR ---
NURSING PCU DAYSHIFT SUMMARY: Assumed care of pt at approx 1430. Arrived from ER via gurney accompanied by RN and son. Xfer to unit bed via slider, bedbath completed upon arrival. Pt A/O, tearful and mildly anxious, speech is slow, answers questions appropriately, able to follow commands. General weakness noted, c/o chronic back pain though denies any current medication needs, only requests repositioning for comfort. Skin fragile though intact, no breakdown noted, minimal redness to coccyx. Tele in place, NSR, no c/o CP pressure, SBP 140-150's, HR 90's, no noted edema. L/S cta t/o, denies dyspnea, no noted cough, O2 sat upper 90's-100% on RA. Abd soft, c/o tenderness w/palp in upper quadrants which pt and son rpt as normal, incontinent of urine, PW and attends placed. PIV x2, sodium bicarb infusing at 100 mls/hr as per d/o. No s/s of acute distress at this time. Pt sleeping comfortably w/no current needs identified. Son remains at bedside. Plan of care discussed w/pt and son, denied additional questions at time of conversation. Call light in reach, cont to monitor until rpt is given to NOC RN.
[2022-12-25 03:32] LABS: Base Excess Venous -17.9 mmol/L; PCO2 Venous 25.8 mmHg (38-42)
[2022-12-25 03:54] LABS: BASOPHILS ABSOLUTE AUTO 0.01 K/mm3 (0.00-0.23); BASOPHILS PERCENT AUTO 0 % (0-2); EOSINOPHILS PERCENT AUTO 0 % (0-6); Hematocrit 26.4 % (33.0-51.0); Hemoglobin 8.5 g/dL (11.5-16.0); IMMATURE GRAN ABSOLUTE AUTO 0.04 K/mm3 (0.00-0.10); IMMATURE GRAN PERCENT AUTO 1 % (0-1); LYMPHOCYTES ABSOLUTE AUTO 0.44 K/mm3 (0.84-5.20); LYMPHOCYTES PERCENT AUTO 6 % (21-46); MONOCYTES ABSOLUTE AUTO 0.29 K/mm3 (0.16-1.47); MONOCYTES PERCENT AUTO 4 % (4-13); Mean Corpuscular HGB 30.9 pg (26.0-34.0); Mean Corpuscular HGB Conc 32.2 g/dL (31.5-36.5); Mean Platelet Volume 9.4 fL (9.1-12.4); NEUTROPHILS ABSOLUTE AUTO 6.27 K/mm3 (1.96-9.15); NEUTROPHILS PERCENT AUTO 89 % (41-73); Platelet Count 348 K/mm3 (150-400); RDW Coefficient Variation 14.8 % (11.7-14.2); RDW Standard Deviation 52.5 fL (35.1-46.3); Red Blood Cell Count 2.75 M/mm3 (3.80-5.20); White Blood Cell Count 7.05 K/mm3 (4.00-11.30)
[2022-12-25 04:23] LABS: Albumin, Blood 2.9 g/dL (3.4-5.0); Albumin/Globulin Ratio 0.8 (0.8-1.8); Bilirubin, Total 0.4 mg/dL (0.1-1.0); Bun/Creatinine Ratio 21.5 (12.0-20.0); Creatinine, Blood 4.28 mg/dL (0.40-1.00); Globulin, Blood 3.6 g/dL (2.2-4.0); Potassium, Blood 4.3 mmol/L (3.5-5.5); Total Protein, Blood 6.5 g/dL (6.4-8.2)
[2022-12-25 04:28] LABS: Mean Corpuscular Volume 96 fL (80-100)
--- NOTE | 2022-12-25 05:15 | NUR ---
SHIFT SUMMARY PT IS MORE ALERT THIS MORNING THAN WHEN SHE FIRST ARRIVED TO THE UNIT. SHE IS ABLE TO CARRY OUT CONVERSATIONS W/O FALLING ASLEEP, AND SHE IS SELF SUCTIONING. SHE HAD TWO DIFFERENT ENSURES IN THE NIGHT AND TOLERATED THEM WELL. SHE HAS BEEN A Q2 HR TURN, HAS A PURWICK DRAINING TO SUCTION, AND SHE HAS HAD A BICARB GTT RUNNING T/O THE NIGHT. THE PT'S PH HAS IMPROVED FROM 7.02 TO 7.20. SHE MAKES GRIMENCES WHEN BEING MOVED BUT HAS DENIED ANY PAIN MEDICATIONS. PT HAS HAD NO COMPLAINTS THIS SHIFT, SR 70'S-90'S ON TELE, AND SP02 >95% ON ROOM AIR. I WILL CONTINUE TO MONITOR UNTIL SHIFT REPORT IS GIVEN TO THE ONCOMING SHIFT RN. SEE NOTES FOR ANY UPDATES.
--- NOTE | 2022-12-25 18:21 | NUR ---
End of shift note. Pt has been drowsy/lethargic for much of the day. Pt was most alert during son's (Rosana) visit this evening. Her improved LOC happened to coinside with Pallative Care RN visit. Pt and son both expressed that they wanted to delay dialysis. Son reports that Pt is significantly improved from 24hours ago and would like to see if she can progress without the dialysis. Pt was educated that dialysis could be for a short time but reinforced that she would like to wait. Pt has remained in bed all shift, with Q2 turns, due to LOC. Fair PO intake, needing staff assistance with meals. VSS. Incont urine. Pt is able to make needs known, call light is within reach.
--- NOTE | 2022-12-25 18:33 | NUR ---
CASE CONF WITH RN, UPDATED PROVIDED ON PT FEARS AND CONCERNS ABOUT HAVING DIALYSIS CATHETER PLACED TOMORROW. MET WITH PT AND SONOTF IN ROOM. PT IS SITTING UPRIGHT IN BED, JUST RECEIVING HER DINNER TRAY. RN REPORTS PT APPETITE HAS BEEN GOOD TODAY AND SHE IS MORE ALERT. PT HAS EYES CLOSED, AWAKENS EASILY WHEN I SPEAK TO HER. PT APPEARS SLEEPY, HOWEVER IS ENGAGED IN CONVERSATION AND IS ANSWERING QUESTIONS APPROP. SHE EXPRESSES CONCERN THAT SHE DOESNT KNOW WHAT IS GOING ON. SON IS AT THE BEDSIDE. THIS PALLIATIVE CARE RN AND BEDSIDE RN PROVIDE UPDATE THAT THE PT IS TO HAVE A DIALYSIS CATHETER PLACED TOMORROW. PT BECOMES TEARFUL AND REPORTS THAT SHE DOESNT WANT TO HAVE THE DIALYSIS CATHETER PLACED BECAUSE SHE IS FEARFUL THAT SHE WILL START DIALYSIS AND NEVER COME OFF OF IT. SHE STATES, "I HAD A FRIEND THAT WAS ON DIALYSIS AND I DONT WANT TO LIVE LIKE THAT." PT SONOTF REPORTS THAT HE IS 'GETTING COMFLICTING INFORMATION" HE REPORTS ONE DOCTOR SAID HIS MOM'S KIDNEY FUNCTION IS IMPROVING AND ANOTHER SAID IT WAS NOT IMPROVING. HE FEELS THAT HIS MOM IS MUCH IMPROVED TODAY COMPARED TO YESTERDAY AND HTEY WANT TO WAIT ANOTHER COUPLE OF DAYS TO SEE IF SHE IMPROVES ENOUGH THAT SHE WOULDNT NEED DIALYSIS. PT IS IN AGREEMENT TO THIS. REASSURED THE PT THAT WE WANT TO HONOR HER BELIEFS AND WISHES, AND I WILL FORWARD THIS INFORMATION TO DR HILL. SHE IS APPRECIATIVE OF THIS. ADVISED THERE HAS BEEN A CONSULT PLACED WITH DR PATTERSON. PT SON WILL NOT BE ABLE TO VISIT TOMORROW UNTIL THE EVENING, PROVIDED HIM WITH MY CINTACT INFORMATION AND I WILL UPDATE HIM TOMORROW IF ANYTHING COMES UP OR HE IS WELCOME TO CALL ME. CALL PLACED TO DR HILL, UPDATED HIM ON MY CONVERSATION WITH THE PT AND HER SON. ADVISED THAT SHE DOESNT WANT TO HAVE THE DIALYSIS CATHETER PLACED OR START DIALYSIS BECAUSE SHE DOESNT WANT DIALYSIS ENROBER TENDER. SHE STATES, "I DONT WANT TO LIVE THAT WAY." DR HILL REPORTS DR DELGADO WILL BE TAKING OVER TOMORROW AND I WILL UPDATE HER WELL. PALLIATIVE CARE WILL CONTINUE TO FOLLOW. .
--- NOTE | 2022-12-26 00:18 | NUR ---
Dr. Crespo contacted regarding patients BP increasing. Patient has not had home BP medications. Dr. Mota to put in med order for when BP is over 180.
[2022-12-26 03:15] LABS: Base Excess Venous -8.9 mmol/L; Bicarbonate Venous 18.1 mmol/L (24.0-30.0); PCO2 Venous 23.5 mmHg (38-42); pH Blood Venous 7.43 (7.34-7.37)
[2022-12-26 03:41] LABS: BASOPHILS ABSOLUTE AUTO 0.01 K/mm3 (0.00-0.23); BASOPHILS PERCENT AUTO 0 % (0-2); EOSINOPHILS PERCENT AUTO 0 % (0-6); Hematocrit 22.9 % (33.0-51.0); Hemoglobin 7.6 g/dL (11.5-16.0); IMMATURE GRAN ABSOLUTE AUTO 0.04 K/mm3 (0.00-0.10); IMMATURE GRAN PERCENT AUTO 0 % (0-1); LYMPHOCYTES ABSOLUTE AUTO 0.91 K/mm3 (0.84-5.20); LYMPHOCYTES PERCENT AUTO 9 % (21-46); MONOCYTES ABSOLUTE AUTO 0.81 K/mm3 (0.16-1.47); MONOCYTES PERCENT AUTO 8 % (4-13); Mean Corpuscular HGB 30.4 pg (26.0-34.0); Mean Corpuscular HGB Conc 33.2 g/dL (31.5-36.5); Mean Corpuscular Volume 92 fL (80-100); Mean Platelet Volume 9.6 fL (9.1-12.4); NEUTROPHILS ABSOLUTE AUTO 8.09 K/mm3 (1.96-9.15); NEUTROPHILS PERCENT AUTO 82 % (41-73); Platelet Count 294 K/mm3 (150-400); RDW Coefficient Variation 14.4 % (11.7-14.2); RDW Standard Deviation 48.3 fL (35.1-46.3); White Blood Cell Count 9.86 K/mm3 (4.00-11.30)
[2022-12-26 03:58] LABS: Albumin, Blood 2.7 g/dL (3.4-5.0); Anion Gap 7 mmol/L (6-16); Blood Urea Nitrogen 88 mg/dL (8-24); Bun/Creatinine Ratio 26.4 (12.0-20.0); CO2, Blood 18 mmol/L (21-32); Calcium, Blood 8.2 mg/dL (8.5-10.1); Chloride, Blood 118 mmol/L (98-108); Creatinine, Blood 3.33 mg/dL (0.40-1.00); Glomerular Filtration Rate 14 (60-); Glucose, Blood 121 mg/dL (70-99); Phosphorus, Blood 4.1 mg/dL (2.5-4.9); Potassium, Blood 3.4 mmol/L (3.5-5.5); Sodium, Blood 143 mmol/L (136-145)
--- NOTE | 2022-12-26 05:10 | NUR ---
Assumed care of pt at 1900. A/Ox4, pleasant and cooperative with care. Less lethargic as the night went on. C/o back pain, heating pad applied and medicated per emar with good relief. Weakness noted t/o but is able to help some with turning. Maintains over 95% on RA, LS clear t/o. Denies CP/pressure, SBP elevated into 160's (see previous RN note). SR on tele 70's. Patient is incontinent of urine, yellow in color with a strong ammonia smell. Pt reports last BM was 3-4 days ago, denies any stomach pain. Hgb downtrending, now at 7.6. Will report to dayshift RN.
--- NOTE | 2022-12-26 11:45 | NUR ---
"Spiritual Care | Pt. request Pt. is rsting in bed but responds when I enter the room. Pt. welcomes my visit. Pt. is pleasant and rapport is established pretty quickly. Pt. is a little unsettled by her new diagnosis. Through theraputic listening and a calming presence Pt. requested prayer. Prayed with Pt. Pt. displayed evidence of a lightened spirit, and verbalized gratitude for the spiritual care visit."
--- NOTE | 2022-12-26 17:04 | NUR ---
CASE COMF WITH RN, PT MORE ALERT TODAY, WAS UP IN CHAIR, SHOWERED AND APPETITE IMPROVING. PT MED WITH DR PATTERSON, DISCUSSION ABOUT DIALYSIS AND PT DOES NOT WANT DIALYSIS. PLAN TO WATCH PT OVER THE WEEKEND AND REASSESS ON THURSDAY. PT SLEEPING WHEN I ENTER THE ROOM, AWAKENS EASILY. PT SMILES REPORTS SHE IS HAVING A GOOD DAY AND IT FELT GOOD TO HAVE A SHOWER. SHE SPOKE TO HER SONS EARLIER IN THE DAY AND THEU ARE UTD ON POC. SHE HAS NO QUESTIONS OR CONCERNS AT THIS TIME. PALLIATIVE CARE WILL CONT TO FOLLOW.
--- NOTE | 2022-12-26 18:42 | NUR ---
END OF SHIFT. PT HAS HAD A GOOD DAY. MENTATION SEEMS TO BE IMPROVING. VITALS STABLE. ROOM AIR. NSR ON TELE. PT WAS ABLE TO GET OOB TO THE CHAIR FOR MUCH OF THE AFTERNOON. PT AMBULATED INTO THE BATHROOM MULTIPLE TIMES. GOOD PO INTAKE. NO COMPLAINTS OF PAIN. SON HERE TO VISIT THIS EVENING.
--- NOTE | 2022-12-27 06:08 | NUR ---
SHIFT [place] A/OX4, PLEASANT AND COOPERATIVE WITH CARE. 1P ASSIST TO BSC. HYPERTENSIVE THIS SHIFT, HYDRALAZINE GIVEN X1 FOR SYSTOLIC >180. TELE SR IN THE 80S. DENIES CHEST PAIN/PRESSURE. SPO2> 92% ON RA. NO ACUTE CHANGES AT THIS TIME. BED IN LOWEST POSITION WITH CALL LIGHT IN REACH. WILL CONTINUE TO MONITOR AND REPORT TO ONCOMING RN.
[2022-12-27 10:10] LABS: Albumin, Blood 2.6 g/dL (3.4-5.0); Anion Gap 6 mmol/L (6-16); Blood Urea Nitrogen 68 mg/dL (8-24); Bun/Creatinine Ratio 26.4 (12.0-20.0); CO2, Blood 25 mmol/L (21-32); Chloride, Blood 113 mmol/L (98-108); Creatinine, Blood 2.58 mg/dL (0.40-1.00); Glomerular Filtration Rate 19 (60-); Glucose, Blood 168 mg/dL (70-99); Phosphorus, Blood 2.5 mg/dL (2.5-4.9); Sodium, Blood 144 mmol/L (136-145)
--- NOTE | 2022-12-27 17:56 | NUR ---
END OF SHIFT NOTE PT A&O X4. VSS. SPO2 > 92% ON RA. PT 1 PERSON ASSIST OOB, TOLERATING ACTIVITY WELL. PT NOW STATING TODAY "I DO WANT TO DO DIALYSIS THURSDAY. I TALKED TO MY FAMILY & I DECIDED I NEED TO JUST DO IT." PT STATING WILL DISCUSS THIS WITH THE DOCTOR ON DOCTOR ROUNDS TOMORROW.
--- NOTE | 2022-12-28 05:51 | NUR ---
SHIFT SUMMARY A/OX4, PLEASANT AND COOPERATIVE WITH CARE. 1P ASSIST TO BATHROOM WITH FWW. PG PLACED TO ANILA. HYPERTENSIVE THIS SHIFT, HYDRALAZINE GIVEN X1 FOR SYSTOLIC >180. TELE SR IN THE 80S. DENIES CHEST PAIN/PRESSURE. SPO2> 92% ON RA. NO ACUTE CHANGES AT THIS TIME. BED IN LOWEST POSITION WITH CALL LIGHT IN REACH. WILL CONTINUE TO MONITOR AND REPORT TO ONCOMING RN.
[2022-12-28 05:57] LABS: Albumin, Blood 2.5 g/dL (3.4-5.0); Anion Gap 2 mmol/L (6-16); Blood Urea Nitrogen 55 mg/dL (8-24); CO2, Blood 26 mmol/L (21-32); Calcium, Blood 8.3 mg/dL (8.5-10.1); Chloride, Blood 115 mmol/L (98-108); Glomerular Filtration Rate 23 (60-); Glucose, Blood 101 mg/dL (70-99); Phosphorus, Blood 2.8 mg/dL (2.5-4.9); Potassium, Blood 3.5 mmol/L (3.5-5.5); Sodium, Blood 143 mmol/L (136-145)
--- NOTE | 2022-12-28 19:18 | NUR ---
TRANSFER FROM PCU PT IS ALERT AND ORIENTED X4. UP IN ROOM UP WITH WALKER AND STANDBY ASSIST. PT REPORTED PAIN. TREATED PER EMAR. BED IS IN THE LOWEST POSITION WITH CALL LIGHT IN REACH. PT IS ABLE TO EXPRESS NEEDS
[2022-12-28] MEDS ORDERED: Vitamin D1000 UNI1 PO (20:23)
[2022-12-28] MEDS ORDERED: C COMPLEX1000 M1 PO (20:23)
--- NOTE | 2022-12-29 04:24 | NUR ---
DRUG ROOM CLERK SUMMARY BP ELEVATED OTHERWISE VSS. ALERT AND ORIENTED, HAD VISIT FROM SIGNIFICANT OTHER AT SHIFT COMMENCE. HAS BEEN RESTING QUIETLY WITH FEW INTERRUPTIONS SINCE HS. DENIED DISTRESS. AFFECT CHEERFUL. CALL LIGHT IN REACH. WILL CONTINUE TO MONITOR
[2022-12-29 05:37] LABS: Albumin, Blood 2.6 g/dL (3.4-5.0); Anion Gap 4 mmol/L (6-16); Blood Urea Nitrogen 43 mg/dL (8-24); Bun/Creatinine Ratio 21.4 (12.0-20.0); CO2, Blood 26 mmol/L (21-32); Calcium, Blood 8.2 mg/dL (8.5-10.1); Chloride, Blood 111 mmol/L (98-108); Creatinine, Blood 2.01 mg/dL (0.40-1.00); Glomerular Filtration Rate 26 (60-); Glucose, Blood 96 mg/dL (70-99); Potassium, Blood 3.7 mmol/L (3.5-5.5); Sodium, Blood 141 mmol/L (136-145)
[2022-12-29] MEDS ORDERED: HYDR10 PO (14:11)
[2022-12-29] MEDS ORDERED: CEFD300 PO (14:12)
[2022-12-29] MEDS ORDERED: Norco 5-325 Ta1 EACH PO (14:12)
[2022-12-29] MEDS ORDERED: MIRALAX17 GM PO (14:12)
--- NOTE | 2022-12-29 15:16 | NUR ---
DISCHARGE DISCHARGE MEDICATIONS AND INSTRUCTIONS EXPLAINED TO PATIENT AND PATIENT'S SON. THEY STATED UNDERSTANDING. HARD COPY RX PROVIDED FOR PAIN MEDICATION. PCP FOLLOW UP SCHEDULED. PIGMENT WEIGHER AND METER SETTER PROVIDED RESOURCES FOR CAREGIVERS AND MEDICAID APPLICATION. POWERGLIDE REMOVED WITHOUT ISSUE. BELONGINGS WITH PATIENT. PATIENT TRANSFERED TO PRIVATE VEHICLE VIA WHEELCHAIR.
== END 2022-12-29 15:47 | disposition home health service (06) | DRG 871 ==
LOC: ER 23:48 → PCU 23:49 → ERHOLD 23:49 → PCU 12-24 14:29 → MEDS 12-24 14:38 → PCU 12-25 09:27 → MEDS 12-28 16:48
PROVIDERS: Internal Medicine; Internal Medicine Nephrology; Student in an Organized Health Care Education/Training Program; ADMIT Internal Medicine
PROC: 3E03329 Introduction of Other Anti-infective into Peripheral Vein, Percutaneous Approach (ICD-10-PCS; principal; 2022-12-25)
PROC: 4A033R1 Measurement of Arterial Saturation, Peripheral, Percutaneous Approach (ICD-10-PCS; 2022-12-25)
DX: A41.51 Sepsis due to Escherichia coli [E. coli] (principal); G92.8 Other toxic encephalopathy; N18.6 End stage renal disease; N39.0 Urinary tract infection, site not specified; N17.9 Acute kidney failure, unspecified; C79.51 Secondary malignant neoplasm of bone; C64.2 Malignant neoplasm of left kidney, except renal pelvis; E87.21 Acute metabolic acidosis; I12.0 Hypertensive chronic kidney disease with stage 5 chronic kidney disease or end stage renal disease; Z66 Do not resuscitate; E86.0 Dehydration; T45.1X5A Adverse effect of antineoplastic and immunosuppressive drugs, initial encounter; E87.5 Hyperkalemia; E87.6 Hypokalemia; K59.00 Constipation, unspecified; K21.9 Gastro-esophageal reflux disease without esophagitis; D63.1 Anemia in chronic kidney disease; M10.9 Gout, unspecified; M54.9 Dorsalgia, unspecified; W19.XXXA Unspecified fall, initial encounter; Z90.710 Acquired absence of both cervix and uterus; Z98.890 Other specified postprocedural states; Z88.5 Allergy status to narcotic agent; Z79.899 Other long term (current) drug therapy; Z88.8 Allergy status to other drugs, medicaments and biological substances; Z87.891 Personal history of nicotine dependence; Z79.811 Long term (current) use of aromatase inhibitors; Z79.52 Long term (current) use of systemic steroids
CPT/HCPCS: 36415; 36600; 70450; 71045; 72125; 72128; 72131; 80048; 80053; 80069; 81001; 82533; 82570; 82803; 83605; 83735; 84156; 85025; 87077; 87086; 87186; 93005; 93010; 94762; 96365; 96366; 96375; 96376; 97110-CQ; 97116; 97116-CQ; 97162; 97166; 97530; 97535; 99285; A9270; C1751; G0378; J0360; J0610; J0696; J1100; J1650; J1815; J3010; J7030; J7512; J7799

== ENCOUNTER → 2023-06-19 | Outpatient (CLI) | payer OTHER ==
[~2023-06-19] MED LIST changes: +BENZONATATE100 MG PO; +HYDR10 PO; +Norco 5-325 Ta1 EACH PO; +Potassium Chlo20 ME1 PO; +Prednisone10 MG PO; +Prinivil10 MG PO
== END | disposition home or self-care (01) ==
LOC: LAB SHORT 15:40 → LAB 15:40
DX: N39.0 Urinary tract infection, site not specified (principal)
CPT/HCPCS: 87077; 87086; 87186

== ENCOUNTER → 2023-08-12 | Outpatient (CLI) | payer OTHER | LOC: LAB SHORT 16:00 → LAB 16:00 | DX: R35.0 Frequency of micturition (principal) | CPT/HCPCS: 87077; 87086; 87186 ==

== ENCOUNTER 2023-09-15 10:46 | Emergency (ER) | payer OTHER ==
[~2023-09-15] VITALS: Ht 154.9 cm; Wt 59.0 kg
[2023-09-15 11:36] LABS: BASOPHILS ABSOLUTE AUTO 0.03 K/mm3 (0.00-0.23); BASOPHILS PERCENT AUTO 0 % (0-2); EOSINOPHILS ABSOLUTE AUTO 0.04 K/mm3 (0.00-0.68); EOSINOPHILS PERCENT AUTO 1 % (0-6); Hematocrit 31.9 % (33.0-51.0); Hemoglobin 10.8 g/dL (11.5-16.0); IMMATURE GRAN ABSOLUTE AUTO 0.07 K/mm3 (0.00-0.10); IMMATURE GRAN PERCENT AUTO 1 % (0-1); LYMPHOCYTES PERCENT AUTO 13 % (21-46); MONOCYTES ABSOLUTE AUTO 0.19 K/mm3 (0.16-1.47); MONOCYTES PERCENT AUTO 2 % (4-13); Mean Corpuscular HGB 29.1 pg (26.0-34.0); Mean Corpuscular HGB Conc 33.9 g/dL (31.5-36.5); Mean Corpuscular Volume 86 fL (80-100); Mean Platelet Volume 8.7 fL (9.1-12.4); NEUTROPHILS ABSOLUTE AUTO 7.32 K/mm3 (1.96-9.15); NEUTROPHILS PERCENT AUTO 84 % (41-73); Platelet Count 115 K/mm3 (150-400); RDW Coefficient Variation 14.1 % (11.7-14.2); RDW Standard Deviation 42.9 fL (35.1-46.3); Red Blood Cell Count 3.71 M/mm3 (3.80-5.20); White Blood Cell Count 8.75 K/mm3 (4.00-11.30)
[2023-09-15 12:04] LABS: Albumin, Blood 3.4 g/dL (3.4-5.0); Albumin/Globulin Ratio 0.8 (0.8-1.8); Bilirubin, Total 0.7 mg/dL (0.1-1.0); Bun/Creatinine Ratio 20.1 (12.0-20.0); Calcium, Blood 9.2 mg/dL (8.5-10.1); Creatinine, Blood 2.14 mg/dL (0.40-1.00); Globulin, Blood 4.4 g/dL (2.2-4.0); Potassium, Blood 2.8 mmol/L (3.5-5.5); Total Protein, Blood 7.8 g/dL (6.4-8.2)
[2023-09-15 14:45] VITALS: BP 160/84
== END 2023-09-15 14:54 | disposition home or self-care (01) ==
LOC: ER 10:46
PROVIDERS: Emergency Medicine
DX: R07.9 Chest pain, unspecified (principal); I12.9 Hypertensive chronic kidney disease with stage 1 through stage 4 chronic kidney disease, or unspecified chronic kidney disease; N18.9 Chronic kidney disease, unspecified; Z87.891 Personal history of nicotine dependence; Z79.52 Long term (current) use of systemic steroids; Z79.899 Other long term (current) drug therapy; Z88.5 Allergy status to narcotic agent; Z88.6 Allergy status to analgesic agent; Z88.8 Allergy status to other drugs, medicaments and biological substances
CPT/HCPCS: 71045; 80053; 84484; 85025; 93005; 93010; 99285-25

== ENCOUNTER → 2023-09-18 | Outpatient (CLI) | payer OTHER ==
[~2023-09-18] MED LIST changes: +AMLODIPINE BESYL5 MG PO; +EUTHYROX75 MC1 PO; +EVEROLIMUS PO; +FENTANYL1 EA10 TOP; +LENVIMA1 EA10 PO; +LOSARTAN-HCTZ1 EACH PO; +Nitrofurantoin100 M1 PO; +PROM25 PO; +Zofran4 MG PO
[2023-09-18 15:28] LABS: BASOPHILS PERCENT AUTO 0 % (0-2); EOSINOPHILS ABSOLUTE AUTO 0.01 K/mm3 (0.00-0.68); EOSINOPHILS PERCENT AUTO 0 % (0-6); Hematocrit 30.5 % (33.0-51.0); Hemoglobin 10.4 g/dL (11.5-16.0); IMMATURE GRAN ABSOLUTE AUTO 0.06 K/mm3 (0.00-0.10); IMMATURE GRAN PERCENT AUTO 1 % (0-1); LYMPHOCYTES ABSOLUTE AUTO 0.45 K/mm3 (0.84-5.20); LYMPHOCYTES PERCENT AUTO 5 % (21-46); MONOCYTES ABSOLUTE AUTO 0.36 K/mm3 (0.16-1.47); MONOCYTES PERCENT AUTO 4 % (4-13); Mean Corpuscular HGB 29.5 pg (26.0-34.0); Mean Corpuscular HGB Conc 34.1 g/dL (31.5-36.5); Mean Corpuscular Volume 86 fL (80-100); Mean Platelet Volume 11.1 fL (9.1-12.4); NEUTROPHILS ABSOLUTE AUTO 8.22 K/mm3 (1.96-9.15); NEUTROPHILS PERCENT AUTO 90 % (41-73); NRBC ABSOLUTE 0.03 K/mm3 (0.00-0.02); NRBC Auto 0.3 /100 WBC (0.0-0.2); Platelet Count 140 K/mm3 (150-400); RDW Standard Deviation 45.4 fL (35.1-46.3); Red Blood Cell Count 3.53 M/mm3 (3.80-5.20)
[2023-09-18 15:52] LABS: Albumin, Blood 3.7 g/dL (3.4-5.0); Albumin/Globulin Ratio 0.9 (0.8-1.8); Bilirubin, Total 0.4 mg/dL (0.1-1.0); Bun/Creatinine Ratio 23.2 (12.0-20.0); Calcium, Blood 8.8 mg/dL (8.5-10.1); Creatinine, Blood 2.59 mg/dL (0.40-1.00); Globulin, Blood 4.1 g/dL (2.2-4.0); Potassium, Blood 3.2 mmol/L (3.5-5.5); Thyroid Stimulating Hormone 29.7 uIU/mL (0.360-4.800); Total Protein, Blood 7.8 g/dL (6.4-8.2)
== END | disposition home or self-care (01) ==
LOC: LAB SHORT 14:53 → LAB 14:53
PROVIDERS: Nurse Practitioner Family
DX: R53.81 Other malaise (principal); R11.0 Nausea
CPT/HCPCS: 80053; 83690; 83735; 84443; 85025

== ENCOUNTER 2023-09-21 14:31 | Emergency (ER) | payer OTHER ==
[~2023-09-21] VITALS: Ht 160 cm; Wt 60.3 kg
[~2023-09-21 14:31] MED LIST changes: -AMLODIPINE BESYL5 MG PO; -EUTHYROX75 MC1 PO; -EVEROLIMUS PO; -FENTANYL1 EA10 TOP; -LENVIMA1 EA10 PO; -LOSARTAN-HCTZ1 EACH PO; -Nitrofurantoin100 M1 PO; -PROM25 PO; -Zofran4 MG PO
[2023-09-21 15:06] LABS: BASOPHILS ABSOLUTE AUTO 0.02 K/mm3 (0.00-0.23); BASOPHILS PERCENT AUTO 0 % (0-2); EOSINOPHILS ABSOLUTE AUTO 0.07 K/mm3 (0.00-0.68); EOSINOPHILS PERCENT AUTO 1 % (0-6); IMMATURE GRAN ABSOLUTE AUTO 0.07 K/mm3 (0.00-0.10); IMMATURE GRAN PERCENT AUTO 1 % (0-1); LYMPHOCYTES ABSOLUTE AUTO 0.48 K/mm3 (0.84-5.20); LYMPHOCYTES PERCENT AUTO 5 % (21-46); MONOCYTES ABSOLUTE AUTO 0.68 K/mm3 (0.16-1.47); MONOCYTES PERCENT AUTO 7 % (4-13); Mean Corpuscular HGB 29.8 pg (26.0-34.0); Mean Corpuscular HGB Conc 33.3 g/dL (31.5-36.5); Mean Corpuscular Volume 89 fL (80-100); Mean Platelet Volume 10.4 fL (9.1-12.4); NEUTROPHILS ABSOLUTE AUTO 8.53 K/mm3 (1.96-9.15); NEUTROPHILS PERCENT AUTO 87 % (41-73); NRBC ABSOLUTE 0.02 K/mm3 (0.00-0.02); NRBC Auto 0.2 /100 WBC (0.0-0.2); Platelet Count 125 K/mm3 (150-400); RDW Coefficient Variation 15.9 % (11.7-14.2); RDW Standard Deviation 48.9 fL (35.1-46.3); Red Blood Cell Count 3.36 M/mm3 (3.80-5.20); White Blood Cell Count 9.85 K/mm3 (4.00-11.30)
[2023-09-21 15:27] LABS: Albumin, Blood 3.6 g/dL (3.4-5.0); Bilirubin, Total 0.5 mg/dL (0.1-1.0); Bun/Creatinine Ratio 20.2 (12.0-20.0); Calcium, Blood 8.7 mg/dL (8.5-10.1); Creatinine, Blood 2.47 mg/dL (0.40-1.00); Globulin, Blood 3.7 g/dL (2.2-4.0); Potassium, Blood 3.1 mmol/L (3.5-5.5); Total Protein, Blood 7.3 g/dL (6.4-8.2)
[2023-09-21] MEDS ORDERED: EVEROLIMUS PO (17:55)
[2023-09-21] MEDS ORDERED: Nitrofurantoin100 M1 PO (17:55)
[2023-09-21] MEDS ORDERED: EUTHYROX75 MC1 PO (17:55)
[2023-09-21] MEDS ORDERED: LENVIMA1 EA10 PO (17:56)
[2023-09-21] MEDS ORDERED: LOSARTAN-HCTZ1 EACH PO (18:00)
[2023-09-21] MEDS ORDERED: Zofran4 MG PO (18:00)
[2023-09-21] MEDS ORDERED: FENTANYL1 EA10 TOP (18:00)
[2023-09-21] MEDS ORDERED: AMLODIPINE BESYL5 MG PO (18:01)
[2023-09-21 19:30] VITALS: BP 208/82
[2023-09-21] MEDS ORDERED: PROM25 PO (19:33)
== END 2023-09-21 19:57 | disposition home or self-care (01) ==
LOC: ER 14:31
PROVIDERS: Physician Assistant
DX: R11.2 Nausea with vomiting, unspecified (principal); R10.9 Unspecified abdominal pain; C64.9 Malignant neoplasm of unspecified kidney, except renal pelvis; C78.7 Secondary malignant neoplasm of liver and intrahepatic bile duct; D63.1 Anemia in chronic kidney disease; I12.9 Hypertensive chronic kidney disease with stage 1 through stage 4 chronic kidney disease, or unspecified chronic kidney disease; N18.9 Chronic kidney disease, unspecified; K21.9 Gastro-esophageal reflux disease without esophagitis; M10.9 Gout, unspecified; Z87.891 Personal history of nicotine dependence; Z79.52 Long term (current) use of systemic steroids; Z79.899 Other long term (current) drug therapy; Z88.5 Allergy status to narcotic agent; Z88.8 Allergy status to other drugs, medicaments and biological substances
CPT/HCPCS: 80053; 85025; 96361; 96374; 96375; 99283-25; J1790; J2405; J7030

== ENCOUNTER 2023-09-24 12:32 | Inpatient (IN) | payer OTHER ==
[~2023-09-24] VITALS: Ht 154.9 cm; Wt 54.4 kg
[~2023-09-24 12:32] MED LIST changes: +AMLODIPINE BESYL5 MG PO; +EUTHYROX75 MC1 PO; +EVEROLIMUS PO; +FENTANYL1 EA10 TOP; +LENVIMA1 EA10 PO; +LOSARTAN-HCTZ1 EACH PO; +Nitrofurantoin100 M1 PO; +PROM25 PO; +Zofran4 MG PO
[2023-09-24 15:00] LABS: Albumin, Blood 3.1 g/dL (3.4-5.0); Albumin/Globulin Ratio 0.8 (0.8-1.8); Bun/Creatinine Ratio 17.8 (12.0-20.0); Calcium, Blood 8.8 mg/dL (8.5-10.1); Creatinine, Blood 3.25 mg/dL (0.40-1.00); Potassium, Blood 3.5 mmol/L (3.5-5.5); Total Protein, Blood 7.1 g/dL (6.4-8.2)
[2023-09-24 15:38] LABS: BASOPHILS ABSOLUTE AUTO 0.03 K/mm3 (0.00-0.23); BASOPHILS PERCENT AUTO 0 % (0-2); EOSINOPHILS ABSOLUTE AUTO 0.04 K/mm3 (0.00-0.68); EOSINOPHILS PERCENT AUTO 0 % (0-6); Hematocrit 32.8 % (33.0-51.0); Hemoglobin 10.9 g/dL (11.5-16.0); IMMATURE GRAN ABSOLUTE AUTO 0.11 K/mm3 (0.00-0.10); IMMATURE GRAN PERCENT AUTO 1 % (0-1); LYMPHOCYTES ABSOLUTE AUTO 0.59 K/mm3 (0.84-5.20); LYMPHOCYTES PERCENT AUTO 6 % (21-46); MONOCYTES ABSOLUTE AUTO 0.56 K/mm3 (0.16-1.47); MONOCYTES PERCENT AUTO 6 % (4-13); Mean Corpuscular HGB 29.6 pg (26.0-34.0); Mean Corpuscular HGB Conc 33.2 g/dL (31.5-36.5); Mean Corpuscular Volume 89 fL (80-100); NEUTROPHILS ABSOLUTE AUTO 8.09 K/mm3 (1.96-9.15); NEUTROPHILS PERCENT AUTO 86 % (41-73); NRBC ABSOLUTE 0.12 K/mm3 (0.00-0.02); NRBC Auto 1.3 /100 WBC (0.0-0.2); Platelet Count 52 K/mm3 (150-400); RDW Coefficient Variation 18.8 % (11.7-14.2); RDW Standard Deviation 58.4 fL (35.1-46.3); Red Blood Cell Count 3.68 M/mm3 (3.80-5.20); White Blood Cell Count 9.42 K/mm3 (4.00-11.30)
[2023-09-24 17:49] LABS: Source, Urine Straight Cath
[2023-09-24 17:51] LABS: Appearance, Urine Clear (Clear); Bilirubin, Urine Neg (Neg); Blood, Urine 5+ (Neg); Color, Urine Amber (P-Yellow); Glucose Qualitative, Urine Neg (Neg); Ketones, Urine 1+ (Neg); Leukocyte Esterase, Urine 1+ (Neg); Nitrite, Urine Neg (Neg); Protein, Urine 4+ (Neg); Specific Gravity, Urine 1.015 (1.003-1.022); Urobilinogen, Urine NORM (Normal)
[2023-09-24 18:13] LABS: Hyaline Casts 0-2 /lpf (0-2)
[2023-09-24 18:14] LABS: Bacteria Few /hpf; Squamous Epithelial Cells Not Seen /hpf (Few)
[2023-09-24 19:24] LABS: Magnesium, Blood 2.2 mg/dL (1.6-2.4)
[2023-09-24 19:44] LABS: Base Excess Venous -11.1 mmol/L; Bicarbonate Venous 15.8 mmol/L (24.0-30.0); PCO2 Venous 39.5 mmHg (38-42)
[2023-09-24 19:49] LABS: pH Blood Venous 7.23 (7.34-7.37)
[2023-09-24 19:59] LABS: Influenza A, PCR NEGATIVE (NEGATIVE); Influenza B, PCR NEGATIVE (NEGATIVE); Resp Syncytial Virus, PCR NEGATIVE (NEGATIVE); SARS-Cov-2 (COVID-19) PCR, MMC NEGATIVE (NEGATIVE)
[2023-09-24 22:04] VITALS: BP 164/71
[2023-09-25 03:22] VITALS: BP 162/72
--- NOTE | 2023-09-25 04:14 | NUR ---
SHIFT SUMMARY 73 YR F ADMITTED ON 09/24/23 FOR ROGELIO. DNR. NO ACUTE CHANGES THIS SHIFT. PT IS VERY WEAK AND A 2 PERSON ASSIST TO THE BEDSIDE COMMODE. SHE STATES SHE HAS BEEN TOO WEAK AT HOME TO EVEN GET UP TO TAKE HER MEDICATIONS. SHE HAS ACTIVE METASTATIC RENAL CELL CARCINOMA BUT STATES THAT SHE IS NOT RECEIVING CHEMO OR RADIATION. SHE STATES SHE HAS LOW URINE OUTPUT DUE TO NOT FEELING WELL ENOUGH TO EAT OR DRINK. HER SKIN IS PALE AND JAUNDICE LOOKING. SHE C/O PAIN IN HER BACK AND SHOULDER AND WAS MEDICATED PER EMAR WITH OXYCODONE AND A FENTANYL PATCH. ONCE SHE SETTLED IN SHE SLEPT FOR THE REST OF THE SHIFT. WILL CONTINUE TO MONITOR. BED IN LOW POSITION AND CALL LIGHT IN REACH.
[2023-09-25 04:50] LABS: Base Excess Venous -8.5 mmol/L; Bicarbonate Venous 18.3 mmol/L (24.0-30.0); PCO2 Venous 27.4 mmHg (38-42); pH Blood Venous 7.39 (7.34-7.37)
[2023-09-25 05:31] LABS: Hematocrit 26.6 % (33.0-51.0); Hemoglobin 8.6 g/dL (11.5-16.0); Mean Corpuscular HGB 29.3 pg (26.0-34.0); Mean Corpuscular HGB Conc 32.3 g/dL (31.5-36.5); Mean Corpuscular Volume 91 fL (80-100); NRBC ABSOLUTE 0.07 K/mm3 (0.00-0.02); NRBC Auto 0.9 /100 WBC (0.0-0.2); Platelet Count 69 K/mm3 (150-400); RDW Coefficient Variation 19.1 % (11.7-14.2); Red Blood Cell Count 2.94 M/mm3 (3.80-5.20); White Blood Cell Count 7.88 K/mm3 (4.00-11.30)
[2023-09-25 06:08] LABS: Albumin, Blood 2.5 g/dL (3.4-5.0); Albumin/Globulin Ratio 0.8 (0.8-1.8); Bilirubin, Total 0.6 mg/dL (0.1-1.0); Creatinine, Blood 2.7 mg/dL (0.40-1.00); Globulin, Blood 3.2 g/dL (2.2-4.0); Magnesium, Blood 2.1 mg/dL (1.6-2.4); Potassium, Blood 2.8 mmol/L (3.5-5.5); Total Protein, Blood 5.7 g/dL (6.4-8.2)
[2023-09-25 07:57] VITALS: BP 167/68
[2023-09-25 15:56] LABS: Bun/Creatinine Ratio 19.6 (12.0-20.0); Calcium, Blood 7.7 mg/dL (8.5-10.1); Creatinine, Blood 2.55 mg/dL (0.40-1.00)
[2023-09-25 16:18] VITALS: BP 137/62
--- NOTE | 2023-09-25 18:10 | NUR ---
SHIFT SUMMARY: NO ACUTE EVENTS. C/O NAUSEA THIS AFTERNOON, RELIEVED WITH ZOFRAN. NO VOMITING OR DIARRHEA. ADAT ORDERED, BUT PT DECLINED ADVANCEMENT OF DIET. POTASSIUM REPLACED, 60 MEQ PO GIVEN. MEDICATED FOR PAIN PER EMAR. PT LIVES ALONE; FAMILY THINKS SHE WILL BE IN HOSPITAL "UNTIL SHE CAN TAKE CARE OF HERSELF AT HOME." SHE IS QUITE WEAK. MAY BENEFIT FROM PT AND OT, OR EVEN HOME HEALTH.
[2023-09-25 19:28] VITALS: BP 174/74
[2023-09-26 03:51] VITALS: BP 175/67
[2023-09-26 05:24] LABS: BASOPHILS ABSOLUTE AUTO 0.01 K/mm3 (0.00-0.23); BASOPHILS PERCENT AUTO 0 % (0-2); EOSINOPHILS ABSOLUTE AUTO 0.13 K/mm3 (0.00-0.68); EOSINOPHILS PERCENT AUTO 2 % (0-6); Hematocrit 22.6 % (33.0-51.0); Hemoglobin 7.4 g/dL (11.5-16.0); IMMATURE GRAN ABSOLUTE AUTO 0.06 K/mm3 (0.00-0.10); IMMATURE GRAN PERCENT AUTO 1 % (0-1); LYMPHOCYTES ABSOLUTE AUTO 0.79 K/mm3 (0.84-5.20); LYMPHOCYTES PERCENT AUTO 15 % (21-46); MONOCYTES ABSOLUTE AUTO 0.32 K/mm3 (0.16-1.47); MONOCYTES PERCENT AUTO 6 % (4-13); Mean Corpuscular HGB 30.3 pg (26.0-34.0); Mean Corpuscular HGB Conc 32.7 g/dL (31.5-36.5); Mean Corpuscular Volume 93 fL (80-100); Mean Platelet Volume 12.1 fL (9.1-12.4); NEUTROPHILS PERCENT AUTO 76 % (41-73); NRBC ABSOLUTE 0.07 K/mm3 (0.00-0.02); NRBC Auto 1.3 /100 WBC (0.0-0.2); Platelet Count 97 K/mm3 (150-400); RDW Coefficient Variation 19.9 % (11.7-14.2); RDW Standard Deviation 60.1 fL (35.1-46.3); Red Blood Cell Count 2.44 M/mm3 (3.80-5.20); White Blood Cell Count 5.41 K/mm3 (4.00-11.30)
[2023-09-26 05:45] LABS: Albumin, Blood 2.4 g/dL (3.4-5.0); Albumin/Globulin Ratio 0.8 (0.8-1.8); Bilirubin, Direct 0.2 mg/dL (0.0-0.3); Bilirubin, Indirect 0.3 mg/dL (0.1-0.7); Bilirubin, Total 0.5 mg/dL (0.1-1.0); Bun/Creatinine Ratio 17.9 (12.0-20.0); Calcium, Blood 7.9 mg/dL (8.5-10.1); Creatinine, Blood 2.24 mg/dL (0.40-1.00); Phosphorus, Blood 1.4 mg/dL (2.5-4.9); Potassium, Blood 2.9 mmol/L (3.5-5.5); Total Protein, Blood 5.4 g/dL (6.4-8.2)
[2023-09-26 08:05] VITALS: BP 170/68
[2023-09-26 08:36] LABS: Percent Saturation 32.5 % (15.0-50.0)
--- NOTE | 2023-09-26 09:00 | NUR ---
Pt laying in bed awake but has eyes closed, speaks in a frail voice, speaks slow, a/ox4, pleasant and cooperative with care, follows commands well, lungs are clear t/o, resp even and unlabored, no cough noted, hrr, no edema noted, ppp+2, cap refill <3 sec, vs stable, afebrile, iv site to rac site is clear and patent, btx4, abd flat soft nontender, voids without diff, skin c/w/d bebeto oconnell, call light in reach.
--- NOTE | 2023-09-26 14:06 | NUR ---
P.T. working with pt, cmplaining of severe right shoulder pain, norco given, pt sitting up in a chair. call light in reach.
[2023-09-26 14:57] VITALS: BP 137/63
--- NOTE | 2023-09-26 18:13 | NUR ---
family at bedside to visit, pt sat up in a chair for a few hrs, is weak, but able to stand and tx indep with minimal assist, did need help getting legs up on bed, no acute changes this shift. call light in reach.
[2023-09-26 19:14] VITALS: BP 162/66
[2023-09-27 02:45] VITALS: BP 160/66
[2023-09-27 05:30] LABS: BASOPHILS ABSOLUTE AUTO 0.02 K/mm3 (0.00-0.23); BASOPHILS PERCENT AUTO 0 % (0-2); EOSINOPHILS ABSOLUTE AUTO 0.13 K/mm3 (0.00-0.68); EOSINOPHILS PERCENT AUTO 2 % (0-6); Hematocrit 24.3 % (33.0-51.0); Hemoglobin 7.7 g/dL (11.5-16.0); IMMATURE GRAN ABSOLUTE AUTO 0.05 K/mm3 (0.00-0.10); IMMATURE GRAN PERCENT AUTO 1 % (0-1); LYMPHOCYTES ABSOLUTE AUTO 0.74 K/mm3 (0.84-5.20); LYMPHOCYTES PERCENT AUTO 13 % (21-46); MONOCYTES ABSOLUTE AUTO 0.47 K/mm3 (0.16-1.47); MONOCYTES PERCENT AUTO 8 % (4-13); Mean Corpuscular HGB 29.7 pg (26.0-34.0); Mean Corpuscular HGB Conc 31.7 g/dL (31.5-36.5); Mean Corpuscular Volume 94 fL (80-100); NEUTROPHILS ABSOLUTE AUTO 4.45 K/mm3 (1.96-9.15); NEUTROPHILS PERCENT AUTO 76 % (41-73); NRBC ABSOLUTE 0.03 K/mm3 (0.00-0.02); NRBC Auto 0.5 /100 WBC (0.0-0.2); Platelet Count 132 K/mm3 (150-400); RDW Coefficient Variation 20.2 % (11.7-14.2); RDW Standard Deviation 63.4 fL (35.1-46.3); Red Blood Cell Count 2.59 M/mm3 (3.80-5.20); White Blood Cell Count 5.86 K/mm3 (4.00-11.30)
[2023-09-27 06:03] LABS: Albumin, Blood 2.4 g/dL (3.4-5.0); Albumin/Globulin Ratio 0.8 (0.8-1.8); Bilirubin, Direct 0.1 mg/dL (0.0-0.3); Bilirubin, Indirect 0.4 mg/dL (0.1-0.7); Bilirubin, Total 0.5 mg/dL (0.1-1.0); Bun/Creatinine Ratio 14.8 (12.0-20.0); Creatinine, Blood 2.03 mg/dL (0.40-1.00); Globulin, Blood 2.9 g/dL (2.2-4.0); Potassium, Blood 3.5 mmol/L (3.5-5.5); Total Protein, Blood 5.3 g/dL (6.4-8.2)
--- NOTE | 2023-09-27 06:03 | NUR ---
SHIFT [place]. PT RESTING IN BED, PT ABLE TO SLEEP FOR A FEW HRS . PT MEDICATED FOR PAIN X 2. PT SITLL A LITTLE PAINFULL EVEN AFTER BEING MEDICATED BUT NOT C/O NEEDING MORE PAIN MEDS YET. RIGHT LEG ELEVATED, CALL LIGHT IN REACH.
--- NOTE | 2023-09-27 06:12 | NUR ---
SHIFT SUMMERY, PT RESTED VERY WELL LAST NIGHT, AND PT NOT C/O ANY PAIN, OR SEEMING TO NEED ANY PAIN MEDS. CALL LIGHT IN REACH.
[2023-09-27 08:29] VITALS: BP 147/78
--- NOTE | 2023-09-27 09:00 | NUR ---
pt up to chair for breakfast, a/ox4, slow to answer and slow to move, and eat, lungs are clear t/o, on r/a, resp even and unlabored, no cough noted, hrr, no edema noted, ppp+1, cap refill <3sec, vs stable, afebrile, iv site to rac is clear and patent, infusing lr at 50mls/hr, btx4, abd flat soft nontender, voids without diff, skin c/w/d, maew, bebeto, call light in reach.
[2023-09-27 16:18] VITALS: BP 166/71
--- NOTE | 2023-09-27 18:15 | NUR ---
pt has slept a lot today, is sleeping durring dinner, did not wake, son in her room. no acute changes this shift. call light in reach.
[2023-09-27 20:23] VITALS: BP 174/67
[2023-09-27 23:04] VITALS: BP 151/67
[2023-09-28 03:05] VITALS: BP 149/62
[2023-09-28 05:51] LABS: BASOPHILS ABSOLUTE AUTO 0.02 K/mm3 (0.00-0.23); BASOPHILS PERCENT AUTO 0 % (0-2); EOSINOPHILS ABSOLUTE AUTO 0.12 K/mm3 (0.00-0.68); EOSINOPHILS PERCENT AUTO 2 % (0-6); Hematocrit 24.9 % (33.0-51.0); Hemoglobin 7.9 g/dL (11.5-16.0); IMMATURE GRAN PERCENT AUTO 1 % (0-1); LYMPHOCYTES ABSOLUTE AUTO 0.57 K/mm3 (0.84-5.20); LYMPHOCYTES PERCENT AUTO 7 % (21-46); MONOCYTES ABSOLUTE AUTO 0.71 K/mm3 (0.16-1.47); MONOCYTES PERCENT AUTO 9 % (4-13); Mean Corpuscular HGB Conc 31.7 g/dL (31.5-36.5); Mean Corpuscular Volume 95 fL (80-100); Mean Platelet Volume 10.7 fL (9.1-12.4); NEUTROPHILS ABSOLUTE AUTO 6.26 K/mm3 (1.96-9.15); NEUTROPHILS PERCENT AUTO 81 % (41-73); NRBC ABSOLUTE 0.02 K/mm3 (0.00-0.02); NRBC Auto 0.3 /100 WBC (0.0-0.2); Platelet Count 163 K/mm3 (150-400); RDW Coefficient Variation 20.7 % (11.7-14.2); Red Blood Cell Count 2.63 M/mm3 (3.80-5.20); White Blood Cell Count 7.78 K/mm3 (4.00-11.30)
[2023-09-28 06:09] LABS: Bun/Creatinine Ratio 14.1 (12.0-20.0); Calcium, Blood 8.2 mg/dL (8.5-10.1); Creatinine, Blood 1.85 mg/dL (0.40-1.00); Phosphorus, Blood 1.8 mg/dL (2.5-4.9); Potassium, Blood 3.8 mmol/L (3.5-5.5)
[2023-09-28 07:40] VITALS: BP 150/64
--- NOTE | 2023-09-28 08:39 | NUR ---
SHIFT SUMMARY PT IS A&OX4, SLOW TO SPEAK AND VERY SOFT SPOKEN. HYPERTENSIVE, SYS >160, PRN HYDRALAZINE GIVEN X1. HR 80-90'S, AFEBRILE, O2 >95% ON RA. C/O PAIN IN HER ABD, TREATED WITH PRN 1MG PO DILAUDID. PT STATES IT DOESN'T HELP. X1 ASSIST TO BR, VOIDED 400 ML, DARK YELLOW CONCENTRATED URINE. NO BM THIS SHIFT. ON A FULL LIQUID DIET, POOR PO INTAKE. RUE 2+ EDEMA, RINGS WERE REMOVED AND PUT IN PT'S BELONGINGS BAG. BED ALARM SET FOR PT'S SAFETY. BED IN LOWEST POSITION, CALL LIGHT WITHIN REACH. FIRE SAFETY CHECKS COMPLETED
[2023-09-28] MEDS ORDERED: K-Phos Origina500 MG PO (12:03)
[2023-09-28] MEDS ORDERED: HYDR1TAB94 PO (12:10)
[2023-09-28 15:42] VITALS: BP 131/75
--- NOTE | 2023-09-28 17:24 | NUR ---
PT IS A/OX4, PLEASANT AND COOPERATIVE. PT IS SLOW TO RESPOND TO ANSWERS BUT ANSWERS QUESTIONS APPROPRIATLY. PT IS UP WITH MINIMAL ASSIST TO THE BATHROOM. THE PT APPEARS TO BE BREATHING EASILY ON RA AT THIS TIME. THE PHYSICAL THERAPIST ATTEMPTED TO WORK WITH THE PT THIS AM, HOWEVER, THE PT DECLINED BECAUSE SHE PLANNED ON GOING HOME. THIS AFTERNOON THE PTS FRIENDS AND FAMILY APPEALED THE DISCHARGE STATING THAT THE PT WAS TO WEAK TO CARE FOR HERSELF AT HOME DESPIT ORDERED HOME HEALTH, PT AND OT. THE PHYSICAL THERAPIST WAS ASKED TO COME BACK AND WORK WITH THE PT, DUE TO ALREADY ATTEMPTING AND FEELING THAT THE PT IS AT HER BASELINE THE THERAPIST AGREEDED TO REASSESS HER IN THE AM. PT WAS MEDICATED FOR PAIN X2 TODAY SO FAR. CALL LIGHT IN REACH. BED IN THE LOW POSITION
[2023-09-28 21:34] VITALS: BP 141/60
--- NOTE | 2023-09-29 04:01 | NUR ---
SHIFT SUMMARY PT IS A&OX4, SLOW TO SPEAK AND VERY SOFT SPOKEN AND HOARSE. VSS ON RA. C/O PAIN IN HER ABD, MANAGED WITH PRN'S, SEE EMAR. X1 ASSIST TO BR VOIDING DARK YELLOW, ODOROUS URINE. NO BM THIS SHIFT. ON A FULL LIQUID DIET, POOR PO INTAKE. RUE WITH TRACE DEPENDENT EDEMA. REPOSITIONED TOLERATED. NO IV, AND DR AWARE. BED IN LOWEST POSITION, CALL LIGHT WITHIN REACH. FIRE SAFETY CHECKS COMPLETED
[2023-09-29 04:07] VITALS: BP 149/58
[2023-09-29 07:50] LABS: BASOPHILS ABSOLUTE AUTO 0.01 K/mm3 (0.00-0.23); BASOPHILS PERCENT AUTO 0 % (0-2); EOSINOPHILS ABSOLUTE AUTO 0.13 K/mm3 (0.00-0.68); EOSINOPHILS PERCENT AUTO 2 % (0-6); Hematocrit 23.1 % (33.0-51.0); Hemoglobin 7.4 g/dL (11.5-16.0); IMMATURE GRAN PERCENT AUTO 1 % (0-1); LYMPHOCYTES ABSOLUTE AUTO 0.67 K/mm3 (0.84-5.20); LYMPHOCYTES PERCENT AUTO 9 % (21-46); MONOCYTES ABSOLUTE AUTO 0.73 K/mm3 (0.16-1.47); MONOCYTES PERCENT AUTO 10 % (4-13); Mean Corpuscular HGB 30.6 pg (26.0-34.0); Mean Corpuscular Volume 96 fL (80-100); Mean Platelet Volume 10.3 fL (9.1-12.4); NEUTROPHILS ABSOLUTE AUTO 5.49 K/mm3 (1.96-9.15); NEUTROPHILS PERCENT AUTO 77 % (41-73); NRBC ABSOLUTE 0.02 K/mm3 (0.00-0.02); NRBC Auto 0.3 /100 WBC (0.0-0.2); Platelet Count 183 K/mm3 (150-400); RDW Coefficient Variation 20.2 % (11.7-14.2); RDW Standard Deviation 69.3 fL (35.1-46.3); Red Blood Cell Count 2.42 M/mm3 (3.80-5.20); White Blood Cell Count 7.13 K/mm3 (4.00-11.30)
[2023-09-29 07:53] VITALS: BP 143/65
[2023-09-29 08:07] LABS: Bun/Creatinine Ratio 12.2 (12.0-20.0); Calcium, Blood 8.1 mg/dL (8.5-10.1); Creatinine, Blood 1.81 mg/dL (0.40-1.00); Phosphorus, Blood 2.6 mg/dL (2.5-4.9); Potassium, Blood 3.9 mmol/L (3.5-5.5)
[2023-09-29 15:08] VITALS: BP 143/66
--- NOTE | 2023-09-29 19:25 | NUR ---
SHIFT SUMMARY: PT A&O X3-4. PLEASANT AND COOPERATIVE WITH CARE. NO ACUTE CHANGES THIS SHIFT. APPEAL FOR D/C DENIED. PLAN FOR PT TO D/C TOMORROW PRIOR TO 1200. FAMILY AWARE. CONTINUES TO C/O 04/27 ABD PAIN. MEDICATED PER EMAR W/LITTLE RELIEF. UNABLE TO SWALLOW LARGE MEDICATIONS. WILL HOLD IN MOUTH UNTIL DISSOLVED. SB ASSIST TO BATHROOM. CALL LIGHT IN REACH. BED IN LOWEST POSITION. REPORT GIVEN TO VICE PRESIDENT OF TALENT MANAGEMENT RN.
[2023-09-29 20:33] VITALS: BP 147/59
[2023-09-30 02:52] VITALS: BP 151/70
--- NOTE | 2023-09-30 07:37 | NUR ---
SHIFT SUMMARY PT IS A&OX4, COOPERATIVE WITH CARE. VSS, MILDLY HYPERTENSIVE ON RA. C/O ABD PAIN, MANAGED WITH PRN PAIN MED, SEE EMAR. SBA WITH FWW TO BR, PT IS OLGURIC, NO BM THIS SHIFT. PT C/O BACK ITCHING SO BAD, APPLIED SILICONE LOTION. HER SKIN IS VERY DRY. 3 SMALL SORES ON HER BUTTOCKS, MEPLEX IN PLACE. ON A FULL LIQUID DIET, POOR APPETITE. BED IN LOWEST POSITION, CALL LIGHT IN PLACE. FIRE SAFETY CHECKS COMPLETED
[2023-09-30 07:46] VITALS: BP 154/70
--- NOTE | 2023-09-30 12:21 | NUR ---
DISCHARGE NOTE- PT DISCHARGED HOME WITH HOME HEALTH. PRIOR DISCHARGE PAPERWORK WAS ALREADY COMPLETED AND PT SIGNED. SHE AND SON STATED ACKNOWLEDGEMENT OF PREVIOUSLY RECIEVED EDUCATION. PT WAS PROVIDED WITH A WC AND HER SON PUSHED HER OUT, THEY DECLINED ESCORT.
== END 2023-09-30 12:08 | disposition home health service (06) | DRG 683 ==
LOC: ER 12:32 → MEDS 12:33 → ENPENDDIS 09-28 08:48 → MEDS 09-30 12:08
PROVIDERS: Emergency Medicine; Family Medicine; Internal Medicine; Nurse Practitioner Acute Care; Physician Assistant; ADMIT Student in an Organized Health Care Education/Training Program
DX: N17.9 Acute kidney failure, unspecified (principal); C64.9 Malignant neoplasm of unspecified kidney, except renal pelvis; E87.0 Hyperosmolality and hypernatremia; E87.20 Acidosis, unspecified; C78.7 Secondary malignant neoplasm of liver and intrahepatic bile duct; N18.4 Chronic kidney disease, stage 4 (severe); Z66 Do not resuscitate; M10.9 Gout, unspecified; K21.9 Gastro-esophageal reflux disease without esophagitis; I12.9 Hypertensive chronic kidney disease with stage 1 through stage 4 chronic kidney disease, or unspecified chronic kidney disease; D63.1 Anemia in chronic kidney disease; D63.0 Anemia in neoplastic disease; R74.01 Elevation of levels of liver transaminase levels; E03.9 Hypothyroidism, unspecified; E87.6 Hypokalemia; D69.6 Thrombocytopenia, unspecified; D64.81 Anemia due to antineoplastic chemotherapy; D69.59 Other secondary thrombocytopenia; T45.1X5A Adverse effect of antineoplastic and immunosuppressive drugs, initial encounter; E83.39 Other disorders of phosphorus metabolism; R53.81 Other malaise; Z88.8 Allergy status to other drugs, medicaments and biological substances; Z88.5 Allergy status to narcotic agent; Z87.891 Personal history of nicotine dependence
CPT/HCPCS: 0241U; 36415; 51701; 51798; 74176; 80048; 80053; 81001; 82248; 82607; 82728; 82746; 82803; 83540; 83550; 83735; 84100; 85025; 85027; 96361; 96374; 96375; 97110; 97116; 97162; 97530; 99285-25; A9270; G0378; J0360; J2405; J7030; J7060; J7120

== ENCOUNTER → 2023-10-15 | Outpatient (CLI) | payer OTHER ==
[~2023-10-15] MED LIST changes: +K-Phos Origina500 MG PO
[2023-10-21 04:47] LABS: OVA AND PARASITE,FECAL INTERP Negative (Negative)
== END ==
LOC: LAB 07:00 → LAB SHORT 07:00
PROVIDERS: Nurse Practitioner Family
DX: R19.7 Diarrhea, unspecified (principal)
CPT/HCPCS: 87177; 87209; 87338; 87507

== ENCOUNTER → 2023-10-17 | Outpatient (CLI) | payer OTHER ==
[2023-10-17 19:27] LABS: Campylobacter Sp Not Detected (NOT DETECT); Plesiomonas Shigelloides Not Detected (NOT DETECT); Salmonella Sp Not Detected (NOT DETECT); Yersinia Enterocolitica Not Detected (NOT DETECT)
[2023-10-17 19:28] LABS: Adenovirus F 40/41 Not Detected (NOT DETECT); Astrovirus Not Detected (NOT DETECT); Cryptosporidium Not Detected (NOT DETECT); Cyclospora Cayetanensis Not Detected (NOT DETECT); E. Coli O157 Not Detected (NOT DETECT); Entamoeba Histolytica Not Detected (NOT DETECT); Enteroaggregative E. coli-EAEC Not Detected (NOT DETECT); Enteropathogenic E. coli-EPEC Not Detected (NOT DETECT); Enterotoxigenic E. coli-ETEC Not Detected (NOT DETECT); Giardia Lamblia Not Detected (NOT DETECT); Norovirus GI/GII Not Detected (NOT DETECT); Rotavirus A Not Detected (NOT DETECT); Sapovirus Not Detected (NOT DETECT); Shiga Toxin-prod E. coli-STEC Not Detected (NOT DETECT); Shigella/Enteroin E. coli-EIEC Not Detected (NOT DETECT); Vibrio Cholerae Not Detected (NOT DETECT); Vibrio Sp Not Detected (NOT DETECT)
== END ==
LOC: LAB SHORT 11:30 → LAB 11:30
PROVIDERS: Nurse Practitioner Family
DX: R19.7 Diarrhea, unspecified (principal)
CPT/HCPCS: 87507

== ENCOUNTER → 2023-10-26 | Outpatient (CLI) | payer OTHER | LOC: LAB SHORT 18:08 → LAB 18:08 | DX: R30.0 Dysuria (principal) | CPT/HCPCS: 87077; 87086; 87186 ==

== ENCOUNTER → 2023-11-18 | Outpatient (CLI) | payer OTHER ==
[2023-11-18 18:05] LABS: BASOPHILS ABSOLUTE AUTO 0.02 K/mm3 (0.00-0.23); BASOPHILS PERCENT AUTO 0 % (0-2); EOSINOPHILS ABSOLUTE AUTO 0.07 K/mm3 (0.00-0.68); EOSINOPHILS PERCENT AUTO 1 % (0-6); Hematocrit 36.2 % (33.0-51.0); Hemoglobin 11.8 g/dL (11.5-16.0); IMMATURE GRAN ABSOLUTE AUTO 0.05 K/mm3 (0.00-0.10); IMMATURE GRAN PERCENT AUTO 1 % (0-1); LYMPHOCYTES ABSOLUTE AUTO 0.59 K/mm3 (0.84-5.20); LYMPHOCYTES PERCENT AUTO 5 % (21-46); MONOCYTES ABSOLUTE AUTO 0.55 K/mm3 (0.16-1.47); MONOCYTES PERCENT AUTO 5 % (4-13); Mean Corpuscular HGB 30.1 pg (26.0-34.0); Mean Corpuscular HGB Conc 32.6 g/dL (31.5-36.5); Mean Corpuscular Volume 92 fL (80-100); NEUTROPHILS ABSOLUTE AUTO 9.83 K/mm3 (1.96-9.15); NEUTROPHILS PERCENT AUTO 88 % (41-73); Platelet Count 405 K/mm3 (150-400); RDW Coefficient Variation 14.9 % (11.7-14.2); RDW Standard Deviation 50.2 fL (35.1-46.3); Red Blood Cell Count 3.92 M/mm3 (3.80-5.20); White Blood Cell Count 11.11 K/mm3 (4.00-11.30)
[2023-11-18 18:13] LABS: Albumin, Blood 4.1 g/dL (3.4-5.0); Albumin/Globulin Ratio 1.1 (0.8-1.8); Bilirubin, Total 0.3 mg/dL (0.1-1.0); Bun/Creatinine Ratio 23.7 (12.0-20.0); Calcium, Blood 9.4 mg/dL (8.5-10.1); Creatinine, Blood 2.36 mg/dL (0.40-1.00); Globulin, Blood 3.7 g/dL (2.2-4.0); Potassium, Blood 2.7 mmol/L (3.5-5.5); Total Protein, Blood 7.8 g/dL (6.4-8.2)
== END | disposition home or self-care (01) ==
LOC: LAB SHORT 15:33 → LAB 15:33
PROVIDERS: Nurse Practitioner Family
DX: R11.2 Nausea with vomiting, unspecified (principal)
CPT/HCPCS: 80053; 85025

== ENCOUNTER 2023-12-05 17:30 | Emergency (ER) | payer OTHER ==
[~2023-12-05] VITALS: Ht 157.5 cm; Wt 51.7 kg
[2023-12-05 18:13] LABS: BASOPHILS ABSOLUTE AUTO 0.03 K/mm3 (0.00-0.23); BASOPHILS PERCENT AUTO 0 % (0-2); EOSINOPHILS ABSOLUTE AUTO 0.12 K/mm3 (0.00-0.68); EOSINOPHILS PERCENT AUTO 2 % (0-6); Hematocrit 37.4 % (33.0-51.0); Hemoglobin 12.1 g/dL (11.5-16.0); IMMATURE GRAN ABSOLUTE AUTO 0.02 K/mm3 (0.00-0.10); IMMATURE GRAN PERCENT AUTO 0 % (0-1); LYMPHOCYTES ABSOLUTE AUTO 0.56 K/mm3 (0.84-5.20); LYMPHOCYTES PERCENT AUTO 8 % (21-46); MONOCYTES ABSOLUTE AUTO 0.46 K/mm3 (0.16-1.47); MONOCYTES PERCENT AUTO 7 % (4-13); Mean Corpuscular HGB 30.6 pg (26.0-34.0); Mean Corpuscular HGB Conc 32.4 g/dL (31.5-36.5); Mean Corpuscular Volume 95 fL (80-100); Mean Platelet Volume 9.2 fL (9.1-12.4); NEUTROPHILS ABSOLUTE AUTO 5.77 K/mm3 (1.96-9.15); NEUTROPHILS PERCENT AUTO 83 % (41-73); Platelet Count 211 K/mm3 (150-400); RDW Coefficient Variation 15.7 % (11.7-14.2); RDW Standard Deviation 54.4 fL (35.1-46.3); Red Blood Cell Count 3.95 M/mm3 (3.80-5.20); White Blood Cell Count 6.96 K/mm3 (4.00-11.30)
[2023-12-05 18:57] LABS: Albumin, Blood 3.7 g/dL (3.4-5.0); Albumin/Globulin Ratio 1.1 (0.8-1.8); Bilirubin, Total 0.5 mg/dL (0.1-1.0); Bun/Creatinine Ratio 14.8 (12.0-20.0); Creatinine, Blood 1.82 mg/dL (0.40-1.00); Globulin, Blood 3.3 g/dL (2.2-4.0); Potassium, Blood 4.1 mmol/L (3.5-5.5)
[2023-12-05] MEDS ORDERED: NS 1,000 ML IV SCH (19:45)
[2023-12-05 21:20] VITALS: BP 173/82
== END 2023-12-05 21:21 | disposition home or self-care (01) ==
LOC: ER 17:30
PROVIDERS: Student in an Organized Health Care Education/Training Program
DX: E86.0 Dehydration (principal); Z88.5 Allergy status to narcotic agent; Z88.8 Allergy status to other drugs, medicaments and biological substances; Z79.899 Other long term (current) drug therapy; Z79.891 Long term (current) use of opiate analgesic; I12.9 Hypertensive chronic kidney disease with stage 1 through stage 4 chronic kidney disease, or unspecified chronic kidney disease; M10.9 Gout, unspecified; K21.9 Gastro-esophageal reflux disease without esophagitis; N18.9 Chronic kidney disease, unspecified; D63.1 Anemia in chronic kidney disease; Z87.891 Personal history of nicotine dependence
CPT/HCPCS: 80053; 85025; 96360; 99284-25; J7030

== ENCOUNTER 2023-12-18 19:39 | Emergency (ER) | payer OTHER ==
[~2023-12-18] VITALS: Ht 157.5 cm; Wt 51.7 kg
[2023-12-18 20:05] LABS: BASOPHILS ABSOLUTE AUTO 0.05 K/mm3 (0.00-0.23); BASOPHILS PERCENT AUTO 1 % (0-2); EOSINOPHILS ABSOLUTE AUTO 0.11 K/mm3 (0.00-0.68); EOSINOPHILS PERCENT AUTO 2 % (0-6); Hematocrit 38.5 % (33.0-51.0); Hemoglobin 12.1 g/dL (11.5-16.0); IMMATURE GRAN ABSOLUTE AUTO 0.02 K/mm3 (0.00-0.10); IMMATURE GRAN PERCENT AUTO 0 % (0-1); LYMPHOCYTES ABSOLUTE AUTO 0.52 K/mm3 (0.84-5.20); LYMPHOCYTES PERCENT AUTO 8 % (21-46); MONOCYTES ABSOLUTE AUTO 0.59 K/mm3 (0.16-1.47); MONOCYTES PERCENT AUTO 9 % (4-13); Mean Corpuscular HGB 30.4 pg (26.0-34.0); Mean Corpuscular HGB Conc 31.4 g/dL (31.5-36.5); Mean Corpuscular Volume 97 fL (80-100); Mean Platelet Volume 9.8 fL (9.1-12.4); NEUTROPHILS ABSOLUTE AUTO 5.63 K/mm3 (1.96-9.15); NEUTROPHILS PERCENT AUTO 81 % (41-73); Platelet Count 189 K/mm3 (150-400); RDW Coefficient Variation 17.7 % (11.7-14.2); RDW Standard Deviation 62.7 fL (35.1-46.3); Red Blood Cell Count 3.98 M/mm3 (3.80-5.20); White Blood Cell Count 6.92 K/mm3 (4.00-11.30)
[2023-12-18 20:24] LABS: Albumin, Blood 3.3 g/dL (3.4-5.0); Bilirubin, Total 0.4 mg/dL (0.1-1.0); Bun/Creatinine Ratio 14.6 (12.0-20.0); Calcium, Blood 9.1 mg/dL (8.5-10.1); Creatinine, Blood 1.99 mg/dL (0.40-1.00); Globulin, Blood 3.2 g/dL (2.2-4.0); Potassium, Blood 3.1 mmol/L (3.5-5.5); Total Protein, Blood 6.5 g/dL (6.4-8.2)
[2023-12-18] MEDS ORDERED: Ondansetron HCl 2 MG / ML 2ML Vial IV ONE (23:25)
[2023-12-18] MEDS ORDERED: NS 1,000 ML IV SCH (23:25)
[2023-12-19] MEDS ORDERED: PROM25 PO (01:13)
[2023-12-19 01:30] VITALS: BP 138/64
== END 2023-12-19 01:50 | disposition home or self-care (01) ==
LOC: ER 19:39
PROVIDERS: Emergency Medicine
DX: R11.2 Nausea with vomiting, unspecified (principal); E86.0 Dehydration; Z88.5 Allergy status to narcotic agent; Z88.8 Allergy status to other drugs, medicaments and biological substances
CPT/HCPCS: 80053; 83690; 85025; J2405; J7030